=== PATIENT | male | born 1945 | race Asian ===

== ENCOUNTER 2016-06-10 05:52 | Emergency (ER) | payer MEDICAID ==
[~2016-06-10] VITALS: Ht 167.6 cm; Wt 59.0 kg
[2016-06-10 06:00] VITALS: BP 169/56
[2016-06-10] MEDS ORDERED: Albuterol ud Inhalation HHN ONE (06:00)
[2016-06-10] MEDS ORDERED: DuoNeb 0.5-3(2.5)mg/3ml neb ONE (06:00)
[2016-06-10] MEDS ORDERED: Solu-MEDROL 125mg Inj IVP ONE (06:00)
[2016-06-10] MEDS ORDERED: Ipratropium 0.02% Inh Soln 2.5ml UD HHN ONE (06:00)
[2016-06-10] MEDS ORDERED: AMLODIPINE BESY10 MG ORAL (06:51)
[2016-06-10] MEDS ORDERED: FUROSEMIDE40 MG ORAL (06:51)
[2016-06-10] MEDS ORDERED: NORMODYNE100 MG ORAL (06:51)
[2016-06-10] MEDS ORDERED: PRAVASTATIN SOD20 M1 ORAL (06:51)
[2016-06-10] MEDS ORDERED: VITAMIN D400 INTLU ORAL (06:51)
[2016-06-10] MEDS ORDERED: CATAPRES0.1 MG ORAL (06:51)
[2016-06-10] MEDS ORDERED: ALLOPURINOL100 M1 ORAL (06:51)
[2016-06-10] MEDS ORDERED: FEOSOL45 MG PO (06:51)
[2016-06-10] MEDS ORDERED: FOLIC ACID1 MG ORAL (06:51)
[2016-06-10] MEDS ORDERED: HYDRALAZINE HC100 MG ORAL (06:51)
--- NOTE | 2016-06-10 07:06 | Emergency Room Report ---
History of Present Illness General Chief Complaint: Dyspnea/Respdistress Source: Family Member, EMS Present Illness HPI Patient brought in by a [facility] for severe hypoxia and respiratory distress. Patient was released from [facility] yesterday at approximately 4 PM with diagnosis of CHF, pneumonia, COPD. Who is been treated with antibiotics as an inpatient and had been found to have low saturations. According to the daughter, who is a nurse. The patient had low sats in the upper 80s on discharge but then had episodes of desaturations into the 70s during eating and during any activity at home. [facility]blin since called, and patient was started on nebulized treatment initially when he came into the ER. IV access is obtained and the patient was placed on a monitoring tech, as well as oxygen was applied. Patient himself is not able to provide review of systems as he is limited at this time All information from the daughter. Allergies: Coded Allergies: ASPIRIN (Verified Allergy, Unknown, 06/10/16) Patient History Limited by: language barrier, medical condition - respiratory distress Past Medical History: see triage record Social History: Denies: alcohol use, drug use, smoking Immunizations: UTD Reviewed Nursing Documentation: PMH: Agreed Nursing Documentation-PMH Hx Hypertension: Yes Hx COPD: Yes - Pneumonia Review of Systems All Other Systems: limited - by patient's condition Physical Exam Vital Signs Date Time Temp Pulse Resp B/P Pulse Ox O2 Delivery O2 Flow Rate FiO2 06/10/16 05:50 98.2 96 18 164/68 94 Nasal Cannula 4.0 06/10/16 06:20 100 Sp02 EP Interpretation: reviewed, abnormal - requiring oxygen General Appearance: alert, moderate distress, cachetic, thin Head: normocephalic, atraumatic ENT: dry mucus membranes Neck: supple, thyroid normal Respiratory: respiratory distress, decreased breath sounds, accessory muscle use, rales, wheezing Cardiovascular #1: regular rate, rhythm, no edema, JVD Cardiovascular #2: 2+ carotid (R), 2+ carotid (L) Gastrointestinal: soft, no mass, no organomegaly Genitourinary: no CVA tenderness Neurologic: alert, responsive Skin: pallor Procedures Critical Care Time Critical Care Time 75 minutes occurred care time, excluding procedures, involving initial resuscitation efforts, multiple reviews of x-rays, labs, ECGs as well as discussion with admitting physicians and family and staff, Medical Decision Making Diagnostic Impression: Primary Impression: Respiratory failure with hypoxia Additional Impressions: Respiratory distress Dyspnea COPD exacerbation Pneumonia Congestive heart disease Acute CHF (congestive heart failure) Hypoxia ER Course Patient here with severe COPD, respiratory failure requiring high volume nebulizers and oxygen therapy. According to the daughter the patient is a full code and would be willing for intubation. Chest x-ray shows bilateral congestive heart failure with possible infiltrate suggestive of pneumonia. Patient receiving oxygen support at this time and should be noted to the STEVAN level of care with guarded condition for respiratory failure possible. Review of labs, consistent with infection, possible CHF,. Patient receives IV fluids as well as primarily diuretics and antibiotics, steroids in the ER. He continued respiratory support. I made first contact with [facility] for transfers patient has been recently treated there and all of her care to see their. Currently pending further transfer information. Spoke with Dr. Colon, who agrees for transfer to [place] to critical care bed. Patient transferred to [place] with otherwise stable condition. Laboratory Tests Test 06/10/16 06:30 06/10/16 07:06 06/10/16 07:12 White Blood Count 25.1 K/UL (4.8-10.8) *H Red Blood Count 2.71 M/UL (4.70-6.10) L Hemoglobin 9.2 G/DL (14.2-18.0) L Hematocrit 26.6 % (42.0-52.0) L Mean Corpuscular Volume 98 FL (80-99) Mean Corpuscular Hemoglobin 33.8 PG (27.0-31.0) H Mean Corpuscular Hemoglobin Concent 34.4 G/DL (32.0-36.0) Red Cell Distribution Width 13.7 % (11.6-14.8) Platelet Count 236 K/UL (150-450) Mean Platelet Volume 7.1 FL (6.5-10.1) Neutrophils (%) (Auto) % (45.0-75.0) Lymphocytes (%) (Auto) % (20.0-45.0) Monocytes (%) (Auto) % (1.0-10.0) Eosinophils (%) (Auto) % (0.0-3.0) Basophils (%) (Auto) % (0.0-2.0) Neutrophils % (Manual) Pending Lymphocytes % (Manual) Pending Platelet Estimate Pending Platelet Morphology Pending Prothrombin Time 9.9 SEC (9.30-11.50) Prothromb Time International Ratio 1.0 (0.9-1.1) Activated Partial Thromboplast Time 27 SEC (23-33) Sodium Level 144 mEQ/L (135-145) Potassium Level 5.1 mEQ/L (3.4-4.9) H Chloride Level 107 mEQ/L (98-107) Carbon Dioxide Level 15 mEQ/L (20-30) L Anion Gap 22 (5-15) H Blood Urea Nitrogen 93 mg/dL (7-23) H Creatinine 3.9 mg/dL (0.7-1.2) H Estimat Glomerular Filtration Rate mL/min (>60) Glucose Level 145 mg/dL (74-106) H Lactic Acid Level 2.10 mmol/L (0.66-2.22) Calcium Level 9.1 mg/dL (8.6-10.2) Total Bilirubin 0.4 mg/dL (0.0-1.2) Aspartate Amino Transf (AST/SGOT) 31 U/L (5-40) Alanine Aminotransferase (ALT/SGPT) 19 U/L (3-41) Alkaline Phosphatase 97 U/L (40-129) Total Creatine Kinase 190 U/L (38-174) H Creatine Kinase MB 4.4 ng/mL (< 6.7) Creatine Kinase MB Relative Index 2.3 Troponin I < 0.30 ng/mL (<=0.30) Pro-B-Type Natriuretic Peptide 8249 pg/mL (0-125) H Total Protein 7.5 g/dL (6.6-8.7) Albumin 3.8 g/dL (3.5-5.2) Globulin 3.7 g/dL Albumin/Globulin Ratio 1.0 (1.0-2.7) Venous Blood pH Pending Venous Blood Partial Pressure CO2 Pending Venous Blood Partial Pressure O2 Pending Venous Blood HCO3 Pending Venous Blood Total Carbon Dioxide Pending Venous Bld O2 Saturation (Measured) 33.7 Venous Blood Oxygen Saturation Pending Venous Blood Base Excess Pending Methemoglobin 0.7 Sodium (Blood Gas) Pending Urine Color Pale yellow Urine Appearance Slightly cloudy Urine pH 5 (4.5-8.0) Urine Specific [place] 1.015 (1.005-1.035) Urine Protein 4+ (NEGATIVE) H Urine Glucose (UA) 1+ (NEGATIVE) H Urine Ketones Negative (NEGATIVE) Urine Occult Blood 4+ (NEGATIVE) H Urine Nitrite Negative (NEGATIVE) Urine Bilirubin Negative (NEGATIVE) Urine Urobilinogen Normal MG/DL (0.0-1.0) Urine Leukocyte Esterase Negative (NEGATIVE) Urine RBC 10-15 /HPF (0 - 0) H Urine WBC 0-2 /HPF (0 - 0) Urine Squamous Epithelial Cells Occasional /LPF Urine Amorphous Sediment Few /LPF (NONE) H Urine Bacteria Few /HPF (NONE) EKG Diagnostic Results EKG Time: 05:58 EP Interpretation: rate 91 Rate: normal Rhythm: NSR ST Segments: other - prolonged MT interval, 292 ms, highly peak T waves ASA given to the pt in ED: No Rhythm Strip Diag. Results Rhythm Strip Time: 07:03 EP Interpretation: yes Rate: 66 Rhythm: NSR, no PVC's, no ectopy Chest X-Ray Diagnostic Results Time: 07:03 EP Interpretation: No Findings: other - Bilateral, congestive heart failure with possible infiltrates middle and lower lobes bilaterally. Number of Views: 1 Reevaluation Time: 07:06 Last Vital Signs Date Time Temp Pulse Resp B/P Pulse Ox O2 Delivery O2 Flow Rate FiO2 06/10/16 06:35 89 28 95 Non-Rebreather 15.0 100 06/10/16 05:50 98.2 164/68 Status: improved Disposition: XFER SHT-TRM HOSP Admit Decision Time: 07:06 Condition: Serious Referrals: [facility]ERR[facility] (PCP) Kanu Fleming MD Jun 10, 2016 07:06
[2016-06-10 07:12] LABS: MEAN CORPUSCULAR HEMOGLOBIN 33.8 PG (27.0-31.0); MEAN CORPUSCULAR HGB CONC 34.4 G/DL (32.0-36.0); MEAN CORPUSCULAR VOLUME 98 FL (80-99); MEAN PLATELET VOLUME 7.1 FL (6.5-10.1); PLATELET COUNT 236 K/UL (150-450); RED BLOOD COUNT 2.71 M/UL (4.70-6.10); RED CELL DISTRIBUTION WIDTH 13.7 % (11.6-14.8)
[2016-06-10 07:13] LABS: PROTHROMBIN TIME 9.9 SEC (9.30-11.50); WHITE BLOOD COUNT 25.1 K/UL (4.8-10.8)
[2016-06-10 07:15] VITALS: BP 177/68
[2016-06-10] MEDS ORDERED: cefTRIAXone 1 GM in NS 55 ML IVPB ONE (07:15)
[2016-06-10] MEDS ORDERED: Azithromycin 500 MG in D5W 275 ML IVPB ONE (07:15)
[2016-06-10 07:18] LABS: ALANINE AMINOTRANSFERASE 19 U/L (3-41); ANION GAP 22 (5-15); ASPARTATE AMINO TRANSFERASE 31 U/L (5-40); CALCIUM 9.1 mg/dL (8.6-10.2); CARBON DIOXIDE 15 mEQ/L (20-30); CHLORIDE 107 mEQ/L (98-107); CREATININE 3.9 mg/dL (0.7-1.2); HEMOLYSIS 0; POTASSIUM 5.1 mEQ/L (3.4-4.9); SODIUM 144 mEQ/L (135-145); TOTAL PROTEIN 7.5 g/dL (6.6-8.7)
[2016-06-10 07:21] LABS: REFLEX LACTIC ACID YES OR NO YES
[2016-06-10 07:27] LABS: TROPONIN I < 0.30 ng/mL (<=0.30)
[2016-06-10 07:29] LABS: APPEARANCE,URINE SLIGHTLY CLOUDY; KETONES,URINE NEGATIVE (NEGATIVE); LEUKOCYTE ESTERASE ,URINE NEGATIVE (NEGATIVE); NITRITE,URINE NEGATIVE (NEGATIVE); PH,URINE 5 (4.5-8.0); PROTEIN,URINE 4+ (NEGATIVE); UROBILINOGEN,URINE NORMAL MG/DL (0.0-1.0)
[2016-06-10] MEDS ORDERED: Azithromycin Inj IV ONE (07:40)
[2016-06-10 07:43] LABS: CKMB 4.4 ng/mL (< 6.7)
[2016-06-10 07:46] LABS: AMORPHOUS SEDIMENT,UR FEW /LPF; BACTERIA,URINE FEW /HPF; SQUAMOUS EPITHELIAL CELL,UR OCCASIONAL /LPF (NONE/OCC); WBC,URINE 0-2 /HPF (0 - 0)
[2016-06-10 07:48] LABS: O2 CONTENT VENOUS 33.7
--- NOTE | 2016-06-10 08:32 | Diagnostic Imaging Report ---
Indications: Shortness of breath Technique: Portable AP chest Findings: Comparison: None Interstitial infiltrates are present diffusely throughout both lungs. Superimposed focal areas of alveolar consolidation are present in the midlung bilaterally, left greater than right. Heart size within normal limits. Pulmonary vasculature obscured. No pleural abnormality. Thoracic aorta mildly calcified and elongated. Osteophytes lower thoracic spine. Chronic appearing contour deformity right clavicle. IMPRESSION: Bilateral interstitial infiltrates may represent pulmonary edema, cardiogenic versus noncardiogenic, diffuse interstitial pneumonitis, or chronic interstitial disease Focal alveolar opacities bilateral midlung regions may represent same process is interstitial disease. Superimposed focal pneumonia must also be considered Aortosclerosis and probable chronic hypertensive change Old fracture right clavicle
[2016-06-10 08:39] VITALS: BP 153/59
[2016-06-10 08:51] LABS: BAND NEUTROPHILS % (MANUAL) 0 % (0-8); BASOPHILS % (MANUAL) 0 % (0-2); EOSINOPHILS % (MANUAL) 0 % (0-3); LYMPHOCYTES % (MANUAL) 2 % (20-45); NEUTROPHILS % (MANUAL) 90 % (45-75); PLATELET ESTIMATE ADEQUATE; PLATELET MORPHOLOGY NORMAL; TOTAL CELLS COUNTED 100
[2016-06-10 08:52] LABS: HYPOCHROMASIA 1+
[2016-06-10 09:06] VITALS: BP 153/59
--- NOTE | 2016-06-15 12:40 | Cardiology Report ---
APPROVED REPORT EKG Measurement Heart [id number] Sinus rhythm with 1st degree AV block Otherwise normal ECG
== END 2016-06-10 09:20 | disposition short-term general hospital (02) ==
LOC: EDBD 05:52 → EMR 05:59
DX: J96.91 Respiratory failure, unspecified with hypoxia (principal); J44.1 Chronic obstructive pulmonary disease with (acute) exacerbation; J18.9 Pneumonia, unspecified organism; I50.9 Heart failure, unspecified; I10 Essential (primary) hypertension
CPT/HCPCS: 36415; 71010; 80053; 81003; 82550; 82553; 82962; 83605; 83880; 84484; 85007; 85025; 85610; 85730; 87040; 93005; 94640; 94664; 96374; 96375; 99291; J0456; J0696; J1940; J2930; J7620

== ENCOUNTER 2018-11-18 05:56 | Day surgery (SDC) | payer MEDICARE, MEDICAID ==
--- NOTE | 2018-10-20 12:57 | Opthalmology H&P ---
Ophthalmology H&P H&P Chief Complaint: decreased vision in left eye HPI Vision Affects Ability to: read, manage personal affairs HPI Narrative Blurry vision Exam Visual Acuity: OD 20/80 OS 20/80 Tension: OD 13 OS 12 Eye Exam: normal OU: external exam, palpebral fissure-width, marginal reflex distance, levator function, corneas, anterior chambers, lens - NS Cataract OD/ PSC-NS Cataract OS, fundus exam; findings: lens - NS Cataract OD/ PSC-NS Cataract OS Assessment/Plan Treatment Plan: cataract extraction w/ lens implant Goals of Treatment: improvement of vision, enhance quality of life Attestation Attestation The risks and benefits of the surgery as well as alternative procedures were explained to the patient in detail. Jurgen Mena MD Oct 20, 2018 12:57
--- NOTE | 2018-10-20 13:00 | Pre-Procedure Note/Attestation ---
Pre-Procedure Note/Attestation Complete Prior to Procedure Planned Procedure: left Procedure Narrative: Cataract extraction with intraocular lens implant left eye Indications for Procedure Pre-Operative Diagnosis: Posterior subcapsular/ nuclear sclerotic cataract left eye Attestation I attest that I discussed the nature of the procedure; its benefits; risks and complications; and alternatives (and the risks and benefits of such alternatives ), prior to the procedure, with the patient (or the patient's legal admitting representative). I attest that, if there was a reasonable possibility of needing a blood transfusion, the patient (or the patient's legal admitting representative) was given the [facility] standardized written summary, pursuant to the Amaury Edel Blood Safety Act ([place] Health and Safety Code # 1645, as amended). I attest that I re-evaluated the patient just prior to the surgery and that there has been no change in the patient's H&P, except as documented below: Jurgen Mena MD Oct 20, 2018 13:00
--- NOTE | 2018-11-17 12:03 | Pre-Procedure Note/Attestation ---
Pre-Procedure Note/Attestation Complete Prior to Procedure Planned Procedure: left Procedure Narrative: Cataract extraction with intraocular lens implant left eye Indications for Procedure Pre-Operative Diagnosis: Posterior subcapsular/ nuclear sclerotic cataract left eye Attestation I attest that I discussed the nature of the procedure; its benefits; risks and complications; and alternatives (and the risks and benefits of such alternatives ), prior to the procedure, with the patient (or the patient's legal call center support representative). I attest that, if there was a reasonable possibility of needing a blood transfusion, the patient (or the patient's legal call center support representative) was given the [facility] standardized written summary, pursuant to the Amaury Edel Blood Safety Act ([place] Health and Safety Code # 1645, as amended). I attest that I re-evaluated the patient just prior to the surgery and that there has been no change in the patient's H&P, except as documented below: Jurgen Mena MD Nov 17, 2018 12:03
[2018-11-18] VITALS (9 sets, daily range): BP systolic 139–178; BP diastolic 58–80
[~2018-11-18] VITALS: Ht 170.2 cm; Wt 59.9 kg
[~2018-11-18 05:56] MED LIST: ADALAT20 MG ORAL; ALLOPURINOL100 M1 ORAL; AMLODIPINE BESY10 MG ORAL; Akten 3.5% 1ml Btl LEFT EYE ONE; CATAPRES0.1 MG ORAL; Cyclopentolate 1% Opth Sol 2ml LEFT EYE SCH; DIOVAN80 MG ORAL; Diclofenac Sod 0.1% Op Soln LEFT EYE SCH; FEOSOL45 MG PO; FOLIC ACID1 MG ORAL; FUROSEMIDE40 MG ORAL; HYDRALAZINE HC100 MG ORAL; NEPHROVITE1 TAB ORAL; NORMODYNE100 MG ORAL; PRAVASTATIN SOD20 M1 ORAL; Phenylephrine 10% Opth Soln 5ml LEFT EYE SCH; Proparacaine 0.5% Opth Soln 15ml LEFT EYE ONE; RENVELA0.8 GM ORAL; Tetracaine 0.5% Opth 4ml Soln LEFT EYE ONE; Tobramycin Op Soln 0.3% 5ml LEFT EYE SCH; Tropicamide 1% Opth 15ml Soln LEFT EYE SCH; VITAMIN D400 INTLU ORAL
[2018-11-18] MEDS ORDERED: Pilocarpine 1% Opth 15ml Soln ONE (07:00)
[2018-11-18] MEDS ORDERED: Polysporin Opth Oint 3.5gm ONE (07:00)
[2018-11-18] MEDS ORDERED: Pred Forte 1% Opth Susp 1ml ONE (07:00)
[2018-11-18] MEDS ORDERED: Akten 3.5% 1ml Btl LEFT EYE ONE (07:00)
[2018-11-18] MEDS ORDERED: Tetracaine 0.5% Opth 4ml Soln LEFT EYE ONE (07:00)
[2018-11-18] MEDS ORDERED: Diclofenac Sod 0.1% Op Soln LEFT EYE SCH (07:00)
[2018-11-18] MEDS ORDERED: Proparacaine 0.5% Opth Soln 15ml LEFT EYE ONE (07:00)
[2018-11-18] MEDS: Cyclopentolate 1% Opth Sol 2ml LEFT EYE SCH ×3 (07:23→08:00)
[2018-11-18] MEDS: Tropicamide 1% Opth 15ml Soln LEFT EYE SCH ×3 (07:23→08:00)
[2018-11-18] MEDS: Tobramycin Op Soln 0.3% 5ml LEFT EYE SCH ×3 (07:25→08:00)
[2018-11-18] MEDS: Phenylephrine 10% Opth Soln 5ml LEFT EYE SCH ×3 (07:25→08:00)
[2018-11-18] MEDS ORDERED: Midazolam 2mg/2ml Inj IVP PRN ×2 (07:45→10:15)
[2018-11-18] MEDS ORDERED: DiphenhydrAMINE 50mg/ml Inj IVP PRN ×2 (07:45→10:15)
[2018-11-18] MEDS ORDERED: fentaNYL 100 mcg/2 mL IV PRN ×2 (07:45→10:15)
[2018-11-18] MEDS ORDERED: Atropine Sulfate 0.4mg/ml inj IVP PRN ×2 (07:45→10:15)
--- NOTE | 2018-11-18 07:50 | Anethesia Preoperative Eval ---
Jennifer Gunn MD 11/18/18 0750: Anesthesia Pre-op PMH/ROS General Date of Evaluation: Nov 18, 2018 Time of Evaluation: 07:47 Anesthesiologist: perico ASA Score: ASA 3 Mallampati Score Class I : Soft palate, uvula, fauces, pillars visible Class II: Soft palate, uvula, fauces visible Class III: Soft palate, base of uvula visible Class IV: Only hard plate visible Surgeon: jameson Diagnosis: posterior subcapsular cataract left eye Surgical Procedure: cataract extraction w/iol implant left eye Family History: no anesthesia problems Allergies: Uncoded Allergies: paper tape (Allergy, Severe, 11/18/18) SKIN RASH Past Medical History Cardiovascular: Reports: HTN Pulmonary: Reports: COPD, other - pneumonia Gastrointestinal/Genitourinary: Reports: ESRD HEENT: Reports: [place]IL[place] (L), [place] (R) Anesthesia Pre-op A/P Risk Assessment & Plan Assessment: asa4 Plan: Ayden Herrera MD 11/18/18 1016: Anesthesia Pre-op PMH/ROS General Mallampati Classification: Class III Allergies: Uncoded Allergies: paper tape (Allergy, Severe, 11/18/18) SKIN RASH Jennifer Gunn MD Nov 18, 2018 07:50 Ayden Hyde MD Nov 18, 2018 10:16
[2018-11-18] MEDS ORDERED: Lidocaine 1% MPF 10mg/ml 5ml ONE (10:00)
[2018-11-18] MEDS ORDERED: Propofol 200mg/20ml IV ONE (10:00)
[2018-11-18] MEDS ORDERED: LR 1000ml ONE (10:00)
[2018-11-18] MEDS ORDERED: Sterile Water Irrig 1000ml IRRIG ONE (10:00)
[2018-11-18] MEDS ORDERED: NS Irrig 2000ml IRRIG ONE (10:00)
[2018-11-18] MEDS ORDERED: Midazolam 2mg/2ml Inj ONE (10:11)
[2018-11-18] MEDS ORDERED: Sodium Chloride 10ml vial INJ ONE (10:12)
[2018-11-18] MEDS ORDERED: Meperidine 50mg/ml Inj(FOR RIGORS ONLY) IVP PRN (10:15)
[2018-11-18] MEDS ORDERED: Ketorolac 30mg Inj IV PRN ×2 (10:15)
[2018-11-18] MEDS ORDERED: HYDROcodone/Acetamin 5/325 tab ORAL PRN (10:15)
[2018-11-18] MEDS ORDERED: oxyCODONE HCL/Acetaminophen 5/325mg ORAL PRN (10:15)
[2018-11-18] MEDS ORDERED: Metoclopramide 10mg/2ml Inj IVP PRN (10:15)
[2018-11-18] MEDS ORDERED: LR 1000ml 1,000 ML IVLG SCH (10:15)
[2018-11-18] MEDS ORDERED: LORazepam Inj 2mg/ml 1ml IV PRN (10:15)
[2018-11-18] MEDS ORDERED: HYDROcodone/Acetamin 7.5/325 tab ORAL PRN (10:15)
[2018-11-18] MEDS ORDERED: Labetalol 5mg/ml 20ml vial IV PRN (10:15)
[2018-11-18] MEDS ORDERED: Hydromorphone 0.5mg/0.5ml inj IVP PRN (10:15)
--- NOTE | 2018-11-18 10:40 | Immediate Post-Op Evaluation ---
Immediate Post-Op Evalulation Immediate Post-Op Evalulation Procedure: Cat Ext IOL OS Date of Evaluation: Nov 18, 2018 Time of Evaluation: 11:08 IV Fluids: 300 NS Blood Products: 0 Estimated Blood Loss: 2 Urinary Output: 0 Blood Pressure Systolic: 169 Blood Pressure Diastolic: 70 Pulse Rate: 59 Respiratory Rate: 16 O2 Sat by Pulse Oximetry: 99 Temperature (Fahrenheit): 97.6 Pain Score (1-10): 1 Nausea: No Vomiting: No Complications 0 Patient Status: awake, reacts, patent, none Hydration Status: adequate Ayden Hyde MD Nov 18, 2018 10:40
--- NOTE | 2018-11-18 10:41 | 48 Hour Post Anesthesia Eval ---
Post Anesthesia Evaluation Procedure: Cat Ext IOL OS Date of Evaluation: Nov 18, 2018 Time of Evaluation: 13:12 Blood Pressure Systolic: 171 0: 72 Pulse Rate: 61 Respiratory Rate: 18 Temperature (Fahrenheit): 97.8 O2 Sat by Pulse Oximetry: 99 Airway: patent Nausea: No Vomiting: No Pain Intensity: 1 Hydration Status: adequate Cardiopulmonary Status: Stable Mental Status/LOC: patient returned to baseline Follow-up Care/Observations: 0 Post-Anesthesia Complications: 0 Follow-up care needed: ready to discharge Ayden Hyde MD Nov 18, 2018 10:41
[2018-11-18] MEDS ORDERED: EPINEPHrine 1mg/1ml Amp ONE (12:57)
[2018-11-18] MEDS ORDERED: BSS 500ml btl ONE (12:57)
[2018-11-18] MEDS ORDERED: Dexamethasone 4mg/ml vial ONE (12:57)
[2018-11-18] MEDS ORDERED: BSS 15ml BTL ONE (12:57)
[2018-11-18] MEDS ORDERED: Sodium Hyaluronate 14 mg/ml 0.85ml ONE (12:58)
[2018-11-18] MEDS ORDERED: Povidone-Iodine 5% opth solution ONE (12:58)
--- NOTE | 2018-11-21 12:05 | Brief Operative Note ---
Immediate Post Operative Note Operative Note Chief Complaint: Blurry Vision left eye Pre-op Diagnosis: Posterior subcapsular/ nuclear sclerotic cataract left eye Procedure: Cataract extraction with intraocular lens implant left eye Post-op Diagnosis: Pseudophakia left eye Post-op Diagnosis: same as pre-op Findings: consistent w/pre-op dx studies Surgeon: Jurgen Mena MD Anesthesiologist: Ayden Hyde MD Anesthesia: MAC Specimen: none Complications: none Condition: stable Fluids: LR Estimated Blood Loss: none Drains: none Implant(s) used?: Yes - IOL-OS Jurgen Mena MD Nov 21, 2018 12:05
--- NOTE | 2018-11-21 12:09 | Operative Note - PDOC ---
Operative Note Operative Note Date of Operation/Procedure: Nov 18, 2018 Chief Complaint: Blurry Vision left eye Pre-op Diagnosis: Posterior subcapsular/ nuclear sclerotic cataract left eye Procedure: Cataract extraction with intraocular lens implant left eye Post-op Diagnosis: Pseudophakia left eye Post-op Diagnosis: same as pre-op Operative Findings: consistent w/pre-op dx studies Surgeon: Jurgen Mena MD Anesthesiologist: Ayden Hyde MD Anesthesia: MAC Specimen: none Complications: none Condition: stable Fluids: LR Estimated Blood Loss: none Drains: none Implant(s) used?: Yes - IOL OS Indications for Procedure Posterior subcapsular/nuclear sclerotic cataract left eye Description of Procedure This patient has been complaining visually significant cataract in the left eye with the best corrected visual acuity of 20/80 under moderate glare conditions worse. The patient complains of difficulties with glare in performing activities of daily living and wants to manage personal affairs with comfort and accuracy and see well enough to move with safety at home and outdoors. The risks, benefits and alternatives of the procedure were discussed with the patient in the office prior to scheduling surgery. All questions from the patient were answered after the surgical procedure was explained in detail. The risks of the procedure as explained to the patient include, but are not limited to, pain, infection, bleeding, loss of vision, retinal detachment, need for further surgery, loss of lens nucleus, double vision, etc. Alternative procedures were discussed which include, to do nothing or seek a second opinion. Informed consent for this procedure was obtained from the patient. The patient was referred to a primary care physician for a cardiopulmonary clearance prior to surgery, after proper evaluation was done patient was properly scheduled for outpatient surgery. The patient was brought to the operating room where the anesthesiologist established I.V. lines and cardiac monitoring leads. Mild intravenous sedation was administered. The patient was then prepared with a 5% solution of povidone -iodine to the conjunctival fornix and lashes, and a 5% solution of povidone- iodine to the lids and periorbital skin. The patient was then draped in the usual sterile fashion. A lid speculum was then placed in the operative eye. A keratome blade was then used to create a biplanar incision into the anterior chamber. Viscoelastics was then instilled into the anterior chamber. A capsulorrhexis was then fashioned with an utrata forceps. The lens nucleus was hydrodissected and hydrodelineated with a G 27 Cannula. Paracentesis incision was made at 3 o'clock with sharp blade. The phacoemulsification unit, after being properly adjusted and tested, was then used to emulsify the nucleus followed by aspiration and irrigation of residual cortical material. Healon was then instilled into the anterior chamber. The corneal wound was then enlarged to the size of the optic with the talat keratome blade. The intraocular lens was then inspected for right power and size and thought to be satisfactory. Then the lens was gently placed in the capsular bag. Positioning within the capsular bag was confirmed by direct visualization. Optic centration was accomplished with a Sinskey hook. Viscoelastics was removed from the anterior chamber using the irrigation and aspiration unit. The corneal wound was then tested for leaks and none were found. The lid speculum were then removed. Sponge and needle counts were correct. An eye patch and shield were placed over the operative eye. The patient was taken to the recovery room in stable condition. There were no complications. The patient tolerated the procedure well. The patient was then transferred to the ambulatory surgery unit in stable and satisfactory condition , was given detailed written instructions and asked to follow up in the office the next day. Jurgen Mena MD Nov 21, 2018 12:09
== END 2018-11-18 12:15 | disposition home or self-care (01) ==
LOC: SUR 05:56
DX: H25.042 Posterior subcapsular polar age-related cataract, left eye (principal); H25.12 Age-related nuclear cataract, left eye; J44.9 Chronic obstructive pulmonary disease, unspecified; I12.9 Hypertensive chronic kidney disease with stage 1 through stage 4 chronic kidney disease, or unspecified chronic kidney disease; N18.9 Chronic kidney disease, unspecified
CPT/HCPCS: 36415; 66984; 84132; J0171; J1100; J2250; J2704; J3370; V2632; 94003; 94150

== ENCOUNTER 2019-06-14 23:41 | Inpatient (IN) | payer MEDICARE, MEDICAID ==
[~2019-06-14] VITALS: Ht 167.6 cm; Wt 48.1 kg
[~2019-06-14 23:41] MED LIST changes: -Akten 3.5% 1ml Btl LEFT EYE ONE; -Cyclopentolate 1% Opth Sol 2ml LEFT EYE SCH; -Diclofenac Sod 0.1% Op Soln LEFT EYE SCH; -Phenylephrine 10% Opth Soln 5ml LEFT EYE SCH; -Proparacaine 0.5% Opth Soln 15ml LEFT EYE ONE; -Tetracaine 0.5% Opth 4ml Soln LEFT EYE ONE; -Tobramycin Op Soln 0.3% 5ml LEFT EYE SCH; -Tropicamide 1% Opth 15ml Soln LEFT EYE SCH
[2019-06-15] MEDS ORDERED: Ipratropium 0.02% Inh Soln 2.5ml UD HHN ONE
[2019-06-15] MEDS ORDERED: Solu-MEDROL 125mg Inj IVP ONE
--- NOTE | 2019-06-15 00:14 | NUR ---
ED Nurse Note: pt presents to ED via EMS arrival RA 68 for SOB since earlier this morning. EMS report that pt is on 4L NC at home and is satting at 99% with 4L NC en route to ED. pt goes to dialysis T, Th, Sat, and his port is on the L side. pt denies any pain at this time, reports a cough Addendum: 06/15/19 at 0042 by [facility] also report that they had 2 EKG's en route that showed the pt is in A-fib. pt denies any h/o A-fib
[2019-06-15 00:16] VITALS: BP 147/69
--- NOTE | 2019-06-15 00:16 | NUR ---
ED Nurse Note: pt reports that he was diagnosed with stage 2 lung CA 4 months ago and since april has been in and out of the hospital for the same symptoms. pt states that he was diagnosed with pneumonia the last time he was in the hospital.
--- NOTE | 2019-06-15 00:30 | NUR ---
ED Nurse Note: RT put pt on 3L NC by respiratory therapist, SpO2 is 96% will conintue to monitor
[2019-06-15 00:40] LABS: BASOPHILS % (AUTO) 1.2 % (0.0-2.0); EOSINOPHILS % (AUTO) 1.2 % (0.0-3.0); HEMATOCRIT 28.1 % (42.0-52.0); LYMPHOCYTES % (AUTO) 17.2 % (20.0-45.0); MEAN CORPUSCULAR VOLUME 97 FL (80-99); NEUTROPHILS % (AUTO) 72.3 % (45.0-75.0); PLATELET COUNT 241 K/UL (150-450); RED BLOOD COUNT 2.91 M/UL (4.70-6.10); RED CELL DISTRIBUTION WIDTH 20.3 % (11.6-14.8)
[2019-06-15 00:51] LABS: ANION GAP 10 mmol/L (5-15); BLOOD UREA NITROGEN 35 mg/dL (7-18); CALCIUM 8.6 MG/DL (8.5-10.1); CARBON DIOXIDE 32 MMOL/L (21-32); CHLORIDE 100 MMOL/L (98-107); CREATININE 6.4 MG/DL (0.55-1.30); POTASSIUM 3.4 MMOL/L (3.5-5.1); SODIUM 141 MMOL/L (136-145)
[2019-06-15] MEDS ORDERED: Piperacillin/Tazobactam 3.375 GM in NS 110 ML IVPB ONE (01:00)
[2019-06-15 01:05] LABS: ALANINE AMINOTRANSFERASE 18 U/L (12-78); ALBUMIN 2.5 G/DL (3.4-5.0); ALBUMIN/GLOBULIN RATIO 0.4 (1.0-2.7); ALKALINE PHOSPHATASE 78 U/L (46-116); ASPARTATE AMINO TRANSFERASE 45 U/L (15-37); BILIRUBIN,TOTAL 0.5 MG/DL (0.2-1.0); CKMB 0.9 NG/ML (0.0-3.6); CREATINE KINASE 43 U/L (26-308)
--- NOTE | 2019-06-15 02:05 | Emergency Room Report ---
History of Present Illness General Chief Complaint: Upper Respiratory Illness Source: Patient Present Illness HPI This a 74-year-old [place] Citizen male with a history of stage II lung cancer diagnosed a 12 years ago. He had chemotherapy and radiation and stopped over a year now. Also history of CHF. He presents with chief complaint shortness of breath. Onset all day today. Worsened tonight. Worse with lying flat. Worse with exertion. He has increased his oxygenation requirement from 3 L to 5 L. Coughing is productive of phlegm. He denies any fever chills. He denies any other complaint. Similar symptom in the past. He was admitted to [facility] for about a week at the end of April. Allergies: Coded Allergies: ASPIRIN (Verified Allergy, Unknown, 06/14/19) Uncoded Allergies: paper tape (Allergy, Severe, 11/18/18) SKIN RASH Patient History Past Medical History: see triage record, old chart reviewed, HTN, CAD, CHF, COPD, other - Lung CA Past Surgical History: other Pertinent Family History: none Social History: Denies: smoking - History of Immunizations: other Reviewed Nursing Documentation: PMH: Agreed; PSxH: Agreed Nursing Documentation-PMH Hx Cardiac Problems: Yes - AFIB EKG Hx Hypertension: Yes Hx COPD: Yes Hx Diabetes: Yes Hx Cancer: No Hx Gastrointestinal Problems: Yes - S/P GASTRIC TUBE FEEDING-2017 X 6 MOS DUE TO PNEUMONIA Hx Dialysis: Yes - T/TH/SAT Hx Neurological Problems: No Review of Systems Eye: Denies: eye pain, blurred vision ENT: Denies: ear pain, nose congestion, throat swelling Respiratory: Reports: shortness of breath; Denies: cough Cardiovascular: Denies: chest pain, palpitations Gastrointestinal: Denies: abdominal pain, diarrhea, nausea, vomiting Musculoskeletal: Denies: back pain, joint pain Skin: Denies: rash Neurological: Denies: headache, numbness Endocrine: Denies: increased thirst, increased urine Hematologic/Lymphatic: Denies: easy bruising All Other Systems: negative except mentioned in HPI Physical Exam Vital Signs Date Time Temp Pulse Resp B/P (MAP) Pulse Ox O2 Delivery O2 Flow Rate FiO2 06/14/19 23:46 98.8 82 16 147/69 (95) 98 Nasal Cannula 4.0 06/15/19 00:06 28 Vitals unremarkable Sp02 EP Interpretation: reviewed, normal General Appearance: alert, mild distress, Chronically Ill Head: normocephalic, atraumatic Eyes: bilateral eye PERRL, bilateral eye EOMI ENT: hearing grossly normal, normal pharynx Neck: full range of motion, supple, no meningismus Respiratory: chest non-tender, respiratory distress, decreased breath sounds, accessory muscle use, rales, rhonchi, wheezing Cardiovascular #1: regular rate, rhythm, no murmur Gastrointestinal: normal bowel sounds, non tender, no mass, no organomegaly, no bruit, non-distended Musculoskeletal: back normal, normal range of motion Psychiatric: mood/affect normal Medical Decision Making Diagnostic Impression: Primary Impression: Acute exacerbation of CHF (congestive heart failure) Qualified Codes: I50.9 - Heart failure, unspecified Additional Impressions: COPD with exacerbation Respiratory failure with hypoxia Qualified Codes: J96.21 - Acute and chronic respiratory failure with hypoxia Acute renal failure Qualified Codes: N17.9 - Acute kidney failure, unspecified Anemia Qualified Codes: D64.9 - Anemia, unspecified ER Course Patient with acute on chronic respiratory distress and respiratory failure. He has combination of CHF and COPD. He may have underlying infiltrate. Antibiotics given here. Patient felt better after breathing treatment. Because of his multiple risk factors, will admit for further work-up. I contacted Dr. Squires for admission. EKG Diagnostic Results Rate: normal Rhythm: NSR ST Segments: other - NSST changes ASA given to the pt in ED: Yes Rhythm Strip Diag. Results EP Interpretation: yes Rate: 82 Rhythm: NSR, no PVC's, no ectopy Chest X-Ray Diagnostic Results Chest X-Ray Diagnostic Results : Chest X-Ray Ordered: Yes # of Views/Limited/Complete: 1 View Indication: Shortness of Breath EP Interpretation: Yes Interpretation: no pneumothorax, other - interstitial lungs dz, vasc congestion, RUL mass. Impression: Other - ILD, chf Electronically Signed by: Mil Cain MD Last Vital Signs Date Time Temp Pulse Resp B/P (MAP) Pulse Ox O2 Delivery O2 Flow Rate FiO2 06/15/19 00:40 85 25 97 Nasal Cannula 3.0 06/15/19 00:25 28 06/15/19 00:16 98.8 147/69 Status: improved Disposition: ADMITTED INPATIENT Condition: Serious Referrals: NON PHYSICIAN (PCP) Mil Cain MD Jun 15, 2019 02:05
[2019-06-15] MEDS ORDERED: Albuterol ud Inhalation HHN ONE ×2 (02:15)
--- NOTE | 2019-06-15 02:17 | NUR ---
ED Nurse Note: report given to THOR Tavares
[2019-06-15] MEDS ORDERED: Albuterol ud Inhalation HHN SCH (03:00)
--- NOTE | 2019-06-15 03:11 | NUR ---
NURSE NOTES: Patient arrived to the unit @0225 via gurney accompanied by the RN and the technical support specialist. Received report from THOR Dickerson from ED. Patient is alert, awake, and responsive. Remains on a 3L NC, with saturation of 96%. Patient currently denies any pain or discomfort. IV access is on the LFA, 22G, patent, intact, and saline locked. Patient's dialysis access is on the R arm, presence of thrill and bruit noted, sign displayed above head of patient's dialysis access. Placed patient on quality assurance monitor chassis, currently displaying A-Fib. Per patient, he has no history of A-Fib. Reviewed the home medication with the patient. Belongings list reviewed and signed with the transferring RN. Patient's is at bed-side. Oriented patient to the room, patient is able to make needs known. Bed is in lowest position, breaks engaged, side-rails x3, bed-alarm on, and call light is within reach at all times. All other needs attended to, patient is currently stable. Contacted Dr. Squires and left a message for admitting orders. No response yet, will continue to monitor the patient.
[2019-06-15] MEDS ORDERED: Albuterol ud Inhalation HHN PRN (06:45)
--- NOTE | 2019-06-15 07:00 | NUR ---
NURSE NOTES: Received report from THOR Bojorquez. Pt A&O x4, denies any pain. Pt asked for breathing tx, RT made aware. IV site on left FA 22g patent and asymptomatic, R AV shunt for dialysis. on bedside. bed on lowest position, call light within reach. Will continue plan of care.
--- NOTE | 2019-06-15 07:31 | NUR ---
NURSE NOTES: Report given to THOR Gray. Patient remains in stable condition. Plan of care endorsed.
[2019-06-15] MEDS: Albuterol ud Inhalation HHN SCH ×5 (07:33→23:52)
[2019-06-15 08:00] VITALS: BP 147/72
[2019-06-15 08:35] LABS: HEMATOCRIT 26.3 % (42.0-52.0); HEMOGLOBIN 8.4 G/DL (14.2-18.0); MEAN CORPUSCULAR VOLUME 96 FL (80-99); PLATELET COUNT 240 K/UL (150-450); RED BLOOD COUNT 2.74 M/UL (4.70-6.10); RED CELL DISTRIBUTION WIDTH 20.1 % (11.6-14.8); WHITE BLOOD COUNT 12.3 K/UL (4.8-10.8)
--- NOTE | 2019-06-15 09:02 | NUR ---
NURSE NOTES: Received a call from Dr Diaz, ordered HD for today. Called [facility] and talked to Gurmeet. Awaiting for a callback for confirmation.
[2019-06-15 09:48] LABS: ALANINE AMINOTRANSFERASE 13 U/L (12-78); ALBUMIN 2.3 G/DL (3.4-5.0); ALBUMIN/GLOBULIN RATIO 0.4 (1.0-2.7); ALKALINE PHOSPHATASE 71 U/L (46-116); ANION GAP 12 mmol/L (5-15); ASPARTATE AMINO TRANSFERASE 25 U/L (15-37); BILIRUBIN,TOTAL 0.6 MG/DL (0.2-1.0); BLOOD UREA NITROGEN 37 mg/dL (7-18); CALCIUM 8.4 MG/DL (8.5-10.1); CARBON DIOXIDE 28 MMOL/L (21-32); CHLORIDE 100 MMOL/L (98-107); CREATININE 6.8 MG/DL (0.55-1.30); POTASSIUM 3.6 MMOL/L (3.5-5.1); SODIUM 140 MMOL/L (136-145)
[2019-06-15] MEDS: cefTRIAXone 1gm/D5W 55ml IVPB SCH ×2 (09:59)
[2019-06-15] MEDS: Heparin 5000 units/ml inj SUBQ SCH ×2 (10:02→20:33)
[2019-06-15] MEDS: Renvela 800mg Pkt ORAL SCH ×3 (10:02→17:42)
[2019-06-15] MEDS: Allopurinol 100mg Tab ORAL SCH (10:02)
[2019-06-15] MEDS: Nephrovite tab (Rena-Vite) ORAL SCH (10:03)
--- NOTE | 2019-06-15 10:30 | Diagnostic Imaging Report ---
Indication: Shortness of breath Technique: One view of the chest Comparison: 06/10/2016 Findings: Again demonstrated is diffuse interstitial disease. Or focal airspace disease is seen in the left midlung and right lung apex. There is slight blunting of the costophrenic sulci bilaterally, small pleural effusions suspected. The heart is enlarged. The aorta is tortuous ectatic and calcified. Interim placement of a right subclavian/innominate venous stent. Impression: Diffuse interstitial disease, with areas of dense parenchymal consolidation in the left midlung and right lung apex. Background interstitial disease appears similar in extent to the prior exam, may have a chronic component. Small bilateral pleural effusions Interim right subclavian/innominate venous stent placement
[2019-06-15 12:00] VITALS: BP 138/65
[2019-06-15] MEDS: Solu-MEDROL 125mg Inj IVP SCH (12:13)
--- NOTE | 2019-06-15 14:37 | Diagnostic Imaging Report ---
Clinical Indication: 74-year-old [place] male with history of stage II lung cancer diagnosed 12 years ago, history of chemotherapy and radiation,, now presents with shortness of breath and increased oxygen requirement Technique: Spiral acquisitions obtained through the chest. No IV contrast utilized, per referring physician request. Multiplanar reconstructions generated. Total dose length product 136 mGycm. CTDIvol(s) 3 mGy. Dose reduction achieved using automated exposure control Comparison: none Findings: Within the right upper lobe, there is extensive honeycombing and bronchiectasis. There is considerable confluent opacity in the right lung apex with associated pleural scarring. There is some upward retraction of the hilum. There is also a large area of confluent opacity abutting the major fissure. Interstitial septal prominence is seen within the right middle lobe, without definite honeycombing or bronchiectasis. Volume loss, bronchiectasis, and some honeycombing is seen in the right lower lobe. There is a small amount of pleural fluid on the right. Parenchymal calcifications and reticular distribution are seen in the posterior right lower lobe. The left upper lobe demonstrates hyperinflation and subpleural blebs near the apex, with reticular interstitial opacities seen within the lingular segments there is a large area of confluent opacity and left pulmonary hilum. This is associated with architectural distortion. Bronchiectasis, volume loss, and some confluent opacities are seen in the left lower lobe, with minimal honeycombing. There is some pleural calcification on the left. There is some parenchymal calcification in the posterior left lower lobe. There is a small left pleural effusion. The heart is mildly enlarged. The aorta is ectatic but not frankly aneurysmal, measuring 4 cm in diameter. The main pulmonary artery is ectatic, measuring 3.5 cm in diameter, and the right and left pulmonary arteries are likewise ectatic, each measuring approximately 2.5 cm. No pericardial effusion. There is a right innominate venous stent. There are large mediastinal collateral veins and likely atresia of the left innominate vein. Collaterals are seen in the bilateral chest wall as well. A calcified subcentimeter nodule is seen in the right thyroid lobe. No axillary or chest wall mass or adenopathy. The esophagus demonstrates equivocal mild wall thickening. The bones are unremarkable except for minimal degenerative spondylosis changes. The included upper abdominal anatomy demonstrates multiple gallstones. There are multiple bilateral renal cysts. There is extensive colonic diverticulosis. Impression: Extensive honeycombing in the right upper lobe. Bilateral bronchiectasis, reticular interstitial opacities, architectural distortion, and confluent opacities. Left upper lobe emphysema. 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 Prominent mediastinal and chest wall collaterals a suspicion of central venoocclusive disease Calcified subcentimeter right thyroid lobe nodule. No further follow-up necessary Equivocal mild esophageal wall thickening, could indicate esophagitis. Correlate with clinical findings Cholelithiasis Incidental finding bilateral renal cysts, colonic diverticulosis The CT scanner at [facility] is accredited by the [employer] and the scans are performed using protocols designed to limit radiation exposure to as low as reasonably achievable to attain images of sufficient resolution adequate for diagnostic evaluation.
[2019-06-15 16:00] VITALS: BP 157/68
--- NOTE | 2019-06-15 16:06 | NUR ---
CASE MANAGEMENT:REVIEW 74 YR OLD MALE BIBA FROM HOME PMH: LUNG CA. COPD. O2 DEPENDENT. ESRD ON HD SI:ACUTE RESPIRATORY FAILURE ANEMIA. COPD EXACERBATION (LUCA PLEURAL EFF) 98.7 82 16 147/69 98% ON 4L/NC WBC+14.0 BUN+35 CR+6.4 IS: DUONEB HHN IV SOLUMEDROL IV ZOSYN IV LEVAQUIN CXR BLOOD CX : TO TELEMETRY
--- NOTE | 2019-06-15 16:15 | History and Physical Report ---
DATE OF ADMISSION: 06/15/2019 REASON FOR ADMISSION: Pulmonary congestion, shortness of breath. HISTORY OF PRESENT ILLNESS: This is a 74-year-old male with history of stage II lung cancer, diagnosed approximately 12 years ago. The patient had chemotherapy and radiation, and has been two or three in the past one year. The patient also has congestive heart failure and also end-stage renal disease. The patient presents with worsening shortness of breath, worsening distress overall. The patient admits that he had a cough and difficulty mobilizing secretions. The patient has had similar symptoms in the past and had been admitted in the past to [facility]. The patient does get dialysis three times per week and his is at the bedside who is his primary caregiver. The patient denies any significant fevers, notes that symptoms have worsened. Also, notes orthopnea and noted increasing oxygen requirements. The patient's care discussed and reviewed. PAST MEDICAL HISTORY: Notable for hypertension, CAD, CHF, COPD, end-stage renal disease, history of lung cancer, history of chemotherapy and radiation. MEDICATIONS: Reviewed. ALLERGIES: Reviewed and reconciled. SOCIAL HISTORY: The patient is currently a nonsmoker, nondrinker. He does have history of smoking in the past. He lives with his . He is disabled and retired. FAMILY HISTORY: Otherwise noncontributory to the above. REVIEW OF SYSTEMS: All 10 points were reviewed. There is no stability, but weight has been stable. Refer to HPI. No other new findings. We discussed the exception of gastric tube feeding due to pneumonia and aspiration. The patient also has diabetes. PHYSICAL EXAMINATION: GENERAL: A well-developed male, but appears to be overall chronically ill. VITAL SIGNS: Reviewed. Blood pressure 147/92, with sats of 96% on 2 L. The patient is afebrile, 97.9. HEENT: Negative. NECK: Supple. EXTREMITIES: Grossly intact. LUNGS: With moderate breath sounds, reduced at both bases with some associated crackles. CARDIAC: S1, S2. Regular rate and rhythm. Soft systolic murmur left sternal border. ABDOMEN: Soft, nontender, nondistended. EXTREMITIES: No cyanosis or clubbing. There is no significant edema. LABORATORY DATA/IMAGING: Notable for diffuse interstitial changes with bilateral pleural effusion. The patient's laboratory data otherwise reviewed. BUN 37, creatinine 6.8. BNP was [address]69. Albumin is 2.3. The patient's CBC, white cell count 12.2, hemoglobin 8.4, and platelets of 240,000. IMPRESSION: 1. Interstitial changes. 2. Possible pulmonary edema. 3. Pleural effusion. 4. Possible fluid overload. 5. Leukocytosis. 6. Possible associated pneumonia. 7. Anemia. 8. End-stage renal disease. 9. History of congestive heart failure. 10. History of severe protein-calorie malnutrition. RECOMMENDATIONS: 1. Supportive care. 2. Empiric antibiotics. 3. Hemodialysis with ultrafiltration. 4. Consider CT of the chest. 5. Obtain ID evaluation to follow further. 6. Continue on IV antibiotics and monitor further changes and interventions. 7. We will reassess and recommend further for improvement, oxygen needs, and disposition. Tristen Squires M.D. DR: SHAWN JOB#: [id number] CC: VICTOR M
--- NOTE | 2019-06-15 16:30 | Consultation ---
DATE OF CONSULTATION: 06/15/2019 NEPHROLOGY CONSULTATION CONSULTING PHYSICIAN: Davis Diaz M.D. REFERRING PHYSICIAN: Tristen Squires M.D. REASON FOR CONSULTATION: End-stage renal disease, shortness of breath. HISTORY OF PRESENT ILLNESS: The patient is a 74-year-old man with end-stage renal disease, who presents with shortness of breath, abnormal chest x-ray. He also has apparently stage II lung cancer diagnosed 12 years ago and a possible recurrence. He is a poor historian and apparently no new treatment has been initiated for the above. He has dyspnea, worse on lying supine and is admitted for the above. He apparently was admitted to [facility] about a month ago. Directives are for DNR. ALLERGIES: To aspirin, possible paper tape. HOME MEDICATIONS: Include allopurinol, nifedipine, sevelamer, losartan, vitamin B complex. SURGERIES: Lung biopsies, AV fistula right arm, cataract surgery. HABITS: He is a former smoker, quit about 12 years ago. Also moderate alcohol at that time. SYSTEM REVIEW: HEAD, EYES, EARS, NOSE, AND THROAT: He has diminished hearing. He has had cataract surgery. ENDOCRINE: No treatment for diabetes. He is not aware of diabetes. PULMONARY: History of increasing shortness of breath as above. CARDIAC: Denies angina or [place]. GASTROINTESTINAL: No GI bleeding or ulcers. No recent nausea or vomiting. GENITOURINARY: Makes little urine. MUSCULOSKELETAL: He has generalized weakness. No inflammatory joints. NEUROLOGIC: No stroke, but he has had a history of difficulty walking. PHYSICAL EXAMINATION: GENERAL: The patient is alert man, not in severe distress. VITAL SIGNS: Temperature 97.9, pulse 69, respirations 20, pulse ox 93 on 2 L, blood pressure 147/72. HEAD, EYES, EARS, NOSE, AND THROAT: Sclerae are nonicteric. Ocular motions intact in all directions. Oral mucosa moist. NECK: No adenopathy. LUNGS: Diminished breath sounds at the bases. Few crackles. HEART: Rhythm is regular. I hear no murmur or rub. ABDOMEN: Soft without organomegaly or masses. EXTREMITIES: No edema, cyanosis, or clubbing. AV fistula in the right arm. NEUROLOGIC: He is alert and responsive. Cranial nerves are intact. No focal findings. DIAGNOSTIC DATA: Chest x-ray shows diffuse interstitial disease with areas of dense parenchymal consolidation left mid lung and right lung apex and background interstitial disease. He has a right subclavian innominate vein venous stent, small bilateral pleural effusions. IMPRESSION: 1. End-stage renal disease. 2. History of lung cancer. 3. Congestive heart failure acute on chronic. 4. Anemia of renal disease. 5. Elevated glucose 152. 6. Borderline troponin is 0.074 and 0.063. PLAN: Dialysis will be arranged. We will watch him closely in view of his comorbidities. Davis Diaz M.D. DR: FREDERIC JOB#: [id number] CC:
[2019-06-15] MEDS ORDERED: Lisinopril 20mg tab ORAL SCH (18:22)
--- NOTE | 2019-06-15 19:10 | NUR ---
OBTAINED REPORT FROM THOR BLANKENSHIP. PT IN NO APPARENT DISTRESS. CURRENTLY RECEIVING HEMODIALYSIS.
[2019-06-15 20:00] VITALS: BP 152/78
--- NOTE | 2019-06-15 20:23 | NUR ---
HAND-OFF: Report given to THOR Valencia. Pt in stable condition. Endorsed plan of care.
--- NOTE | 2019-06-15 22:10 | NUR ---
LEFT MESSAGE WITH MD BROWNING TO MAKE AWARE PT HAD 10 BEATS OF VTACH DURING DAY SHIFT AROUND 1830. PT CURRENTLY SR WITH HR 95, RECEIVING HEMODIALYSIS AND IN NO APPARENT DISTRESS. LEFT CALL BACK NUMBER IN MESSAGE.
--- NOTE | 2019-06-15 22:30 | NUR ---
PT HAD DIALYSIS TODAY, PER HD NURSE, PT HAD 2L OUT.
--- NOTE | 2019-06-15 23:00 | Consultation ---
DATE OF CONSULTATION: 06/15/2019 CARDIOLOGY CONSULTATION CONSULTING PHYSICIAN: Shamar Reyna M.D. REQUESTING PHYSICIAN: Tristen Squires M.D. REASON FOR CONSULTATION: Acute congestive heart failure. HISTORY OF PRESENT ILLNESS: This 74-year-old male has end-stage renal disease and is on hemodialysis. He presented to the hospital with several days of progressive cough, congestion, shortness of breath, and swelling. He has been compliant with his dialysis sessions. He also has been compliant with medications. Symptoms lasted all day, did not improve despite using pulmonary regimen and was noting symptoms, even worse lying flat and with activity. The patient has oxygen at home and increased his requirement from 3 to 5 liters. He did have cough productive of phlegm, but no fevers or chills. The patient is status post radiation therapy over a month ago for maintenance of his lung cancer, which was diagnosed many years ago and has been contained for the most part. PAST MEDICAL HISTORY: Includes hypertension, coronary atherosclerosis, congestive heart failure, COPD, lung cancer, end-stage renal disease, osteoarthritis, osteoporosis, paroxysmal atrial fibrillation. ALLERGIES: Include aspirin. FAMILY HISTORY: Noncontributory. SOCIAL HISTORY: He has a 50+ pack year smoking history and quit about 12 years ago. REVIEW OF SYSTEMS: A 10-point review of systems performed. All systems negative other than outlined above. PHYSICAL EXAMINATION: VITAL SIGNS: Blood pressure 147/69, pulse 82, respiratory rate 16, afebrile. NECK: Jugular venous pressure elevated. LUNGS: With diminished breath sounds and rhonchi. CARDIAC: Regular rhythm and rate. Frequent ectopic beats. Normal S1 and S2. A 1/6 systolic murmur at apex. ABDOMEN: Soft and nontender. EXTREMITIES: No clubbing, cyanosis, no edema. Good distal pulses. NEUROLOGIC: Nonfocal. LABORATORY AND DIAGNOSTIC DATA: EKG was performed and notable for sinus rhythm, left anterior superior hemiblock, voltage criteria for left ventricular hypertrophy. CT scan of the chest was performed and reviewed, notable for right upper lobe honeycombing and mass with emphysema, pleural effusions and possible esophageal wall thickening. White count 14, hemoglobin 9. Pro-natriuretic peptide over 14,000. Troponin #1, 0.074; troponin #2, 0.063; troponin #3, 0.033. BUN 37, creatinine 6.8, potassium 3.6. Albumin 2.3. IMPRESSION: 1. Chronic obstructive pulmonary disease exacerbation. 2. Paroxysmal bronchospasm. 3. Lung cancer. 4. Acute bronchitis and possible pneumonia. 5. Acute on chronic diastolic congestive heart failure. 6. End-stage renal disease, on hemodialysis. 7. Acute myocardial ischemia and possible non-ST elevation infarction. 8. Severe protein-calorie malnutrition. 9. Paroxysmal atrial ectopy. 10. Hyperglycemia, evaluate for possible type 2 diabetes mellitus. PLAN: 1. Cardiac monitoring. 2. Hemodialysis with ultrafiltration. 3. Check echocardiogram. 4. Angiotensin-converting enzyme inhibitor. 5. No role for diuretic therapy in this setting. 6. Inhaled bronchodilators. 7. Antimicrobials per primary care physician. 8. Protein supplement. 9. DVT prophylaxis. 10. Insulin coverage by sliding scale. Shamar Reyna M.D. DR: Davis JOB#: [id number] CC:
[2019-06-16] VITALS: BP 112/64
[2019-06-16] MEDS: Solu-MEDROL 125mg Inj IVP SCH ×2 (00:53→12:59)
[2019-06-16] MEDS: Albuterol ud Inhalation HHN SCH ×5 (03:34→19:34)
[2019-06-16 04:00] VITALS: BP 116/75
--- NOTE | 2019-06-16 07:10 | NUR ---
GAVE FULL REPORT TO THOR BLANKENSHIP. PT IN NO APPARENT DISTRESS.
--- NOTE | 2019-06-16 07:45 | NUR ---
NURSE NOTES: Received report from THOR Valencia. Pt A/Ox4, denies any pain, no s/sx of acute distress. Pt in 2L NC. Reported 2L out from HD yesterday. Bed on lowest position,call light within reach. Will continue to monitor.
[2019-06-16 08:00] VITALS: BP 120/60
--- NOTE | 2019-06-16 08:53 | General Progress Note ---
Assessment/Plan Assessment/Plan: IMPRESSION: 1. Bronchiectasis 2. Pneumonia 3. Pleural effusion. 4. Possible fluid overload. 5. Leukocytosis. 6. pulmonary fibrosis 7. Anemia. 8. End-stage renal disease. 9. History of congestive heart failure. 10. History of severe protein-calorie malnutrition. PLAN ID and cards antibiotics oxygen therapy will need outpatient monitoring of CT aware prior cancer history discussed impression, plan, and exam edited and reviewed in detail care discussed with RN Subjective Allergies: Coded Allergies: ASPIRIN (Verified Allergy, Unknown, 06/14/19) Uncoded Allergies: paper tape (Allergy, Severe, 11/18/18) SKIN RASH Subjective CT chest reviewed care noted Objective Last 24 Hour Vital Signs Date Time Temp Pulse Resp B/P (MAP) Pulse Ox O2 Delivery O2 Flow Rate FiO2 06/16/19 08:00 97.6 101 22 120/60 (80) 96 06/16/19 07:18 86 20 98 Nasal Cannula 3.0 32 84 20 97 06/16/19 07:18 97 Nasal Cannula 3.0 32 06/16/19 04:00 90 06/16/19 04:00 98.5 85 18 116/75 (89) 99 06/16/19 03:34 88 20 99 Nasal Cannula 3.0 32 85 20 96 06/16/19 00:00 99 06/16/19 00:00 97.3 97 20 112/64 (80) 98 06/15/19 23:52 99 20 98 Nasal Cannula 2.0 28 97 20 93 06/15/19 20:00 87 06/15/19 20:00 97.6 90 18 152/78 (102) 98 06/15/19 20:00 Nasal Cannula 2.0 06/15/19 19:53 96 Nasal Cannula 2.0 28 06/15/19 19:42 81 20 99 Nasal Cannula 2.0 28 83 20 96 06/15/19 16:00 96.6 80 20 157/68 (97) 92 06/15/19 15:37 80 20 98 Nasal Cannula 2.0 28 81 20 97 06/15/19 15:28 88 06/15/19 12:00 97.0 78 20 138/65 (89) 93 06/15/19 11:36 84 06/15/19 11:17 81 06/15/19 11:11 69 20 96 Nasal Cannula 2.0 28 68 20 93 Intake and Output 06/15/19 06/16/19 19:00 07:00 Intake Total 700 ml 2000 ml Balance 700 ml 2000 ml Intake Oral 700 ml Hemodialysis 2000 ml # Voids 1 # Bowel Movements 2 Laboratory Tests 06/15/19 11:30: Hepatitis B Surface Antigen Negative 06/15/19 15:20: Troponin I 0.033 06/15/19 23:15: Troponin I 0.049 Height (Feet): 5 Height (Inches): 6.00 Weight (Pounds): 128 Objective GENERAL: A well-developed male, but appears to be overall chronically ill. NECK: Supple. EXTREMITIES: Grossly intact. LUNGS: With moderate breath sounds, reduced at both bases with some associated crackles. CARDIAC: S1, S2. Regular rate and rhythm. Soft systolic murmur left sternal border. ABDOMEN: Soft, nontender, nondistended. EXTREMITIES: No cyanosis or clubbing. There is no significant edema. reviewed and edited Tristen Squires MD Jun 16, 2019 08:53
[2019-06-16] MEDS: Lisinopril 20mg tab ORAL SCH (09:00)
[2019-06-16] MEDS: Heparin 5000 units/ml inj SUBQ SCH ×3 (09:00→21:36)
[2019-06-16] MEDS: Allopurinol 100mg Tab ORAL SCH (09:58)
[2019-06-16] MEDS: Nephrovite tab (Rena-Vite) ORAL SCH (09:58)
[2019-06-16] MEDS: cefTRIAXone 1gm/D5W 55ml IVPB SCH ×2 (09:59)
[2019-06-16] MEDS: Renvela 800mg Pkt ORAL SCH ×3 (09:59→17:19)
[2019-06-16 12:00] VITALS: BP 125/56
--- NOTE | 2019-06-16 13:22 | Nephrology Progress Note ---
Assessment/Plan Problem List: (1) Bronchiectasis (2) Anemia in chronic kidney disease (3) End-stage renal disease (4) Acute exacerbation of CHF (congestive heart failure) (5) Pneumonia Plan stable on dialysi, continue antibiotics, pulm care, epogen Subjective Constitutional: Reports: weakness HEENT: Reports: no symptoms Genitourinary: Reports: no symptoms Neurologic/Psychiatric: Reports: no symptoms Objective Objective Last 24 Hour Vital Signs Date Time Temp Pulse Resp B/P (MAP) Pulse Ox O2 Delivery O2 Flow Rate FiO2 06/16/19 11:17 88 18 98 Nasal Cannula 2.0 28 82 22 98 06/16/19 09:58 101 120/60 06/16/19 09:00 Nasal Cannula 2.0 06/16/19 09:00 120/60 06/16/19 08:00 97.6 101 22 120/60 (80) 96 06/16/19 07:49 95 06/16/19 07:18 86 20 98 Nasal Cannula 3.0 32 84 20 97 06/16/19 07:18 97 Nasal Cannula 3.0 32 06/16/19 04:00 90 06/16/19 04:00 98.5 85 18 116/75 (89) 99 06/16/19 03:34 88 20 99 Nasal Cannula 3.0 32 85 20 96 06/16/19 00:00 99 06/16/19 00:00 97.3 97 20 112/64 (80) 98 06/15/19 23:52 99 20 98 Nasal Cannula 2.0 28 97 20 93 06/15/19 20:00 87 06/15/19 20:00 97.6 90 18 152/78 (102) 98 06/15/19 20:00 Nasal Cannula 2.0 06/15/19 19:53 96 Nasal Cannula 2.0 28 06/15/19 19:42 81 20 99 Nasal Cannula 2.0 28 83 20 96 06/15/19 16:00 96.6 80 20 157/68 (97) 92 06/15/19 15:37 80 20 98 Nasal Cannula 2.0 28 81 20 97 06/15/19 15:28 88 Intake and Output 06/15/19 06/16/19 19:00 07:00 Intake Total 700 ml 2000 ml Balance 700 ml 2000 ml Intake Oral 700 ml Hemodialysis 2000 ml # Voids 1 # Bowel Movements 2 Laboratory Tests 06/15/19 15:20: Troponin I 0.033 06/15/19 23:15: Troponin I 0.049 Height (Feet): 5 Height (Inches): 6.00 Weight (Pounds): 128 General Appearance: no apparent distress, alert Neck: normal alignment Cardiovascular: regular rhythm Respiratory/Chest: crackles/rales Abdomen: soft Extremities: no edema Neurologic: advanced manufacturing vice president II-XII grossly normal Davis Diaz MD Jun 16, 2019 13:22
--- NOTE | 2019-06-16 13:52 | CDS Physician Query ---
Clarification is required for compliance, coding accuracy, and to reflect severity of illness for this patient Dear Tristen Rojas MD Date: 06/16/2019 CDS: Erwin Ugarte This is a 74-year-old male with history of stage II lung cancer, diagnosed approximately 12 years ago. The patient had chemotherapy and radiation, and has been two or three in the past one year. The patient also has congestive heart failure and also end-stage renal disease. The patient presents with worsening shortness of breath, worsening distress overall. The patient admits that he had a cough and difficulty mobilizing secretions. IMPRESSION: 1. Bronchiectasis 2. Pneumonia 3. Pleural effusion. A diagnosis of "Pneumonia" is documented, and the patient is on: Please specify the underlying etiology: [] Gram +Positive Organism(s) [] Anaerobes [] Gram -Negative Organism(s) [] Aspiration [] Pseudomonas [] Mycoplasma [] MRSA [x] Not Applicable [] Other organism(s). Please specify: Present on Admission: [x] Yes [] No [] Clinically Undetermined Physician signature Date Please also document in your Progress Notes and/or Discharge Summary and indicate if the condition was present on admission. MTDD
--- NOTE | 2019-06-16 15:45 | Consultation ---
DATE OF CONSULTATION: 06/16/2019 INFECTIOUS DISEASES CONSULTATION CONSULTING PHYSICIAN: Joe Calderon M.D. REFERRING PHYSICIAN: Tristen Squires M.D. REASON FOR CONSULTATION: Pneumonia. HISTORY OF PRESENTING ILLNESS: This is a 74-year-old gentleman with history of hypertension, congestive heart failure, renal failure, lung cancer, status post radiation therapy who comes in with increasing cough and shortness of breath. He denies any fever. He was found to have pneumonia and an Infectious Diseases consultation has been obtained for antibiotics. PAST MEDICAL HISTORY: 1. History of hypertension. 2. Coronary artery disease. 3. Congestive heart failure. 4. COPD. 5. Renal failure. 6. Lung cancer, status post radiation therapy. MEDICATIONS: As an inpatient, he is on lisinopril, Solu-Medrol, allopurinol, Renvela, vitamin B and C, folic acid, nifedipine, Protonix, subcutaneous heparin, Plavix, ceftriaxone, albuterol, Tylenol, Mylanta. ALLERGIES: 1. Aspirin. 2. Paper tape. SOCIAL HISTORY: He used to be a smoker for 40 years before he quit. He has history of alcohol use, he does not drink anymore. No history of drug use. FAMILY HISTORY: Positive for prostate cancer in his father. REVIEW OF SYSTEMS: RESPIRATORY: No fever or chills. He has cough. He has shortness of breath. CARDIAC: No chest pain. No palpitation. No dizziness. No syncope. GASTROINTESTINAL: No nausea. No vomiting. No abdominal pain or diarrhea. PHYSICAL EXAMINATION: VITAL SIGNS: On examination, temperature of 97.6, T-max of 98.8, pulse of 101, respiratory rate of 22, blood pressure 120/60, O2 saturation of 96%. HEENT: Pupils equally reactive to light and accommodation. Mouth appears clean without thrush. NECK: Supple. No adenopathy. No JVD. CARDIOVASCULAR: Regular rate and rhythm. No murmurs. LUNGS: Clear to auscultation bilaterally. No crackles. No wheezes. ABDOMEN: Soft, nontender. No organomegaly. EXTREMITIES: No cyanosis, no clubbing, no edema. LABORATORY AND DIAGNOSTIC DATA: White count of 12.3, white count of 14 on 06/15/2019, hemoglobin 8.4, hematocrit 26.3, MCV 96, platelet count of 240,000 with neutrophils of 96%. Sodium 140, potassium 3.6, chloride 100, bicarb 28, BUN 37, creatinine 0.8, glucose 152, calcium 8.4. Total bilirubin 0.6. AST 25, ALT 13, alkaline phosphatase 71. Troponin 0.049. Total protein 7.9, albumin 2.3. Hepatitis B surface antigen is negative. Chest x-ray is showing diffuse interstitial disease with areas of dense parenchymal consolidation in the left mid lung and right lung apex. Small bilateral pleural effusions noted. Chest CT showing extensive honeycombing in the right upper lobe, bilateral bronchiectasis, reticular interstitial opacities, architectural distortion and confluent opacities, left upper lobe emphysema, underlying mass lesion cannot be excluded, small bilateral pleural effusion, pulmonary arterial hypertension. There could be mild esophageal wall thickening, cholelithiasis. Colonic diverticulosis noted. ASSESSMENT: 1. This is a 74-year-old gentleman with history of hypertension, renal failure, lung cancer, who comes in with cough and shortness of breath, would be concerned regarding possible postobstructive pneumonia. 2. History of hypertension. 3. History of coronary artery disease. 4. Congestive heart failure. 5. Leukocytosis is improving. PLAN: 1. Continue ceftriaxone. 2. We will order sputum for Gram stain and culture. 3. We will follow up cultures and adjust antibiotics accordingly. I would like to thank, Dr. Squires for this consultation. Joe Calderon M.D. DR: THOMAS JOB#: [id number] CC: Tristen Squires M.D.; Fax#: [phone]
[2019-06-16 16:00] VITALS: BP 134/60
[2019-06-16] MEDS: NovoLOG Insulin Flexpen SUBQ SCH ×2 (16:30→21:00)
--- NOTE | 2019-06-16 17:22 | NUR ---
CASE MANAGEMENT:REVIEW 06/16/19 SI: PNA. PLEURAL EFF. ESRD 97.8 88 20 134/60 94% ON 2L/NC IS: EPOETIN SQ MWF LISINOPRIL PO QD IV SOLUMEDROL Q12 PROCARDIA XL PO QD PROTONIX PO QD PLAVIX PO QD IV ROCEPHIN Q24 DUONEB HHN Q4HRS RTC : TELEMETRY STATUS DCP: FROM HOME
[2019-06-16 20:00] VITALS: BP 127/60
--- NOTE | 2019-06-16 20:02 | NUR ---
HAND-OFF: Report given to THOR Davies. Pt in stable condition, endorsed plan of care.
--- NOTE | 2019-06-16 20:03 | NUR ---
NURSE NOTES: Got report from Marina MCRAE. Pt in stable condition. Denies any pain. No s/s of distress or discomfort noted. Pt resting in bed comfortably. Bed in low and locked position, call light within reach, bedside table within reach. Continue to monitor.
[2019-06-16] MEDS ORDERED: Epoetin Alfa-EPBX(ESRD on dialysis)4000 units/ml vial SUBQ SCH (21:00)
[2019-06-16] MEDS: Epoetin Alfa-EPBX(ESRD on dialysis)3000 units/ml vial SUBQ SCH (21:24)
[2019-06-17] VITALS: BP 121/56
[2019-06-17] MEDS: Albuterol ud Inhalation HHN SCH ×7 (00:04→22:19)
[2019-06-17] MEDS: Solu-MEDROL 125mg Inj IVP SCH ×3 (00:15→23:40)
[2019-06-17 04:00] VITALS: BP 113/55
--- NOTE | 2019-06-17 06:10 | Progress Note ---
DATE: 06/16/2019 CARDIOLOGY PROGRESS NOTE SUBJECTIVE: less congestion and shortness of breath. Monitored rhythm sinus with atrial ectopics. No sustained atrial arrhythmias. OBJECTIVE: VITAL SIGNS: Blood pressure 120/60, heart rate 84 to 101, respiratory rate 20 to 22, and afebrile. LUNGS: Diminished breath sounds. Rhonchi. No wheezing. CARDIAC: Regular rhythm and rate. Normal S1 and S2. There is a 1/6 systolic apical murmur. ABDOMEN: Soft. EXTREMITIES: No edema. LABORATORY DATA: No new labs. IMPRESSION: 1. Bronchiectasis. 2. Lung cancer. 3. Community-acquired pneumonia. 4. Acute on chronic diastolic congestive heart failure. 5. End-stage renal disease. PLAN: 1. Antimicrobials. 2. Respiratory hygiene. 3. Bronchodilators. 4. Steroids. 5. Hemodialysis with ultrafiltration. 6. Titration of anti-failure regimen. 7. Epogen and iron supplements. Shamar Reyna M.D. DR: LAMONT JOB#: [id number] CC:
[2019-06-17] MEDS: NovoLOG Insulin Flexpen SUBQ SCH ×4 (06:30→20:52)
--- NOTE | 2019-06-17 07:15 | NUR ---
NURSE NOTES: Received report from THOR Davies. Pt A/Ox4, denies any pain. No s/sx of acute distress. Pt on 2L NC, IV on L FA 22g patent and asymptomatic. Pt scheduled to have dialysis today. Bed on lowest position, call light within reach. Will continue plan of care.
--- NOTE | 2019-06-17 07:20 | NUR ---
HAND-OFF: Report given to Marina MCRAE.
[2019-06-17 08:00] VITALS: BP 118/58
[2019-06-17] MEDS: Lisinopril 20mg tab ORAL SCH (09:00)
--- NOTE | 2019-06-17 09:16 | General Progress Note ---
Assessment/Plan Assessment/Plan: IMPRESSION: 1. Bronchiectasis 2. Pneumonia 3. Pleural effusion. 4. Possible fluid overload. 5. Leukocytosis. 6. pulmonary fibrosis 7. Anemia. 8. End-stage renal disease. 9. History of congestive heart failure. 10. History of severe protein-calorie malnutrition. PLAN ID and cards noted antibiotics as is oxygen therapy will need outpatient monitoring of CT aware prior cancer history discussed repeat imaging in am dc planning for next 2-3 days if improves impression, plan, and exam edited and reviewed in detail care discussed with RN Subjective Allergies: Coded Allergies: ASPIRIN (Verified Allergy, Unknown, 06/14/19) Uncoded Allergies: paper tape (Allergy, Severe, 11/18/18) SKIN RASH Subjective CT chest reviewed care noted cardiology reviewed Objective Last 24 Hour Vital Signs Date Time Temp Pulse Resp B/P (MAP) Pulse Ox O2 Delivery O2 Flow Rate FiO2 06/17/19 07:27 98 Nasal Cannula 3.0 32 06/17/19 07:26 84 18 98 Nasal Cannula 2.0 28 80 20 97 06/17/19 04:00 98.1 84 20 113/55 (74) 98 06/17/19 04:00 84 06/17/19 03:10 86 18 98 Nasal Cannula 2.0 28 83 18 96 06/17/19 00:04 86 16 96 Nasal Cannula 2.0 28 82 16 92 06/17/19 00:00 97.5 86 16 121/56 (77) 95 06/17/19 00:00 83 06/16/19 21:00 Nasal Cannula 2.0 06/16/19 20:00 86 06/16/19 20:00 97.9 87 16 127/60 (82) 98 06/16/19 19:36 97 Nasal Cannula 3.0 32 06/16/19 19:34 90 17 98 Nasal Cannula 2.0 28 87 20 97 06/16/19 16:00 97.8 88 20 134/60 (84) 94 06/16/19 15:45 85 06/16/19 15:22 83 17 98 Nasal Cannula 2.0 28 80 20 96 06/16/19 12:00 97.9 88 20 125/56 (79) 96 06/16/19 11:57 88 06/16/19 11:17 88 18 98 Nasal Cannula 2.0 28 82 22 98 06/16/19 09:58 101 120/60 Intake and Output 06/16/19 06/17/19 19:00 07:00 Intake Total 400 ml Output Total 200 ml Balance 200 ml Intake Oral 400 ml Output Urine Total 200 ml # Voids 1 1 Height (Feet): 5 Height (Inches): 6.00 Weight (Pounds): 128 Objective GENERAL: A well-developed male, but appears to be overall chronically ill. NECK: Supple. EXTREMITIES: Grossly intact. LUNGS: With moderate breath sounds, reduced at both bases with some associated crackles. CARDIAC: S1, S2. Regular rate and rhythm. Soft systolic murmur left sternal border. ABDOMEN: Soft, nontender, nondistended. EXTREMITIES: No cyanosis or clubbing. There is no significant edema. reviewed and edited Tristen Squires MD Jun 17, 2019 09:16
[2019-06-17] MEDS: Nephrovite tab (Rena-Vite) ORAL SCH (09:42)
[2019-06-17] MEDS: cefTRIAXone 1gm/D5W 55ml IVPB SCH ×2 (09:42)
[2019-06-17] MEDS: Renvela 800mg Pkt ORAL SCH ×3 (09:43→18:12)
[2019-06-17] MEDS: Allopurinol 100mg Tab ORAL SCH (09:43)
[2019-06-17] MEDS: Heparin 5000 units/ml inj SUBQ SCH ×2 (09:47→20:54)
[2019-06-17 12:00] VITALS: BP 104/47
--- NOTE | 2019-06-17 12:39 | Nephrology Progress Note ---
Assessment/Plan Problem List: (1) Bronchiectasis (2) Anemia in chronic kidney disease (3) End-stage renal disease (4) Acute exacerbation of CHF (congestive heart failure) (5) Pneumonia Plan stable on dialysi, continue antibiotics, pulm care, epogen Subjective Constitutional: Reports: weakness HEENT: Reports: no symptoms Genitourinary: Reports: no symptoms Neurologic/Psychiatric: Reports: no symptoms Objective Objective Last 24 Hour Vital Signs Date Time Temp Pulse Resp B/P (MAP) Pulse Ox O2 Delivery O2 Flow Rate FiO2 06/17/19 11:16 85 16 100 Nasal Cannula 2.0 28 88 16 100 06/17/19 09:00 Nasal Cannula 2.0 06/17/19 08:00 96.8 89 20 118/58 (78) 91 06/17/19 07:52 96 06/17/19 07:27 98 Nasal Cannula 3.0 32 06/17/19 07:26 84 18 98 Nasal Cannula 2.0 28 80 20 97 06/17/19 04:00 98.1 84 20 113/55 (74) 98 06/17/19 04:00 84 06/17/19 03:10 86 18 98 Nasal Cannula 2.0 28 83 18 96 06/17/19 00:04 86 16 96 Nasal Cannula 2.0 28 82 16 92 06/17/19 00:00 97.5 86 16 121/56 (77) 95 06/17/19 00:00 83 06/16/19 21:00 Nasal Cannula 2.0 06/16/19 20:00 86 06/16/19 20:00 97.9 87 16 127/60 (82) 98 06/16/19 19:36 97 Nasal Cannula 3.0 32 06/16/19 19:34 90 17 98 Nasal Cannula 2.0 28 87 20 97 06/16/19 16:00 97.8 88 20 134/60 (84) 94 06/16/19 15:45 85 06/16/19 15:22 83 17 98 Nasal Cannula 2.0 28 80 20 96 Intake and Output 06/16/19 06/17/19 19:00 07:00 Intake Total 400 ml Output Total 200 ml Balance 200 ml Intake Oral 400 ml Output Urine Total 200 ml # Voids 1 1 Height (Feet): 5 Height (Inches): 6.00 Weight (Pounds): 128 General Appearance: no apparent distress, alert EENT: normal ENT inspection Neck: normal alignment Cardiovascular: regular rhythm Respiratory/Chest: lungs clear Abdomen: non tender, soft Extremities: no edema Neurologic: 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
[2019-06-17] MEDS ORDERED: Heparin Sod 1000 units/ml 10ml IV PRN (13:00)
[2019-06-17 16:00] VITALS: BP 107/49
--- NOTE | 2019-06-17 19:50 | NUR ---
HAND-OFF: Report given to THOR Davies. Pt in stable condition. Endorsed plan of care.
[2019-06-17 20:00] VITALS: BP 93/55
--- NOTE | 2019-06-17 22:45 | Progress Note ---
DATE: 06/17/2019 CARDIOLOGY PROGRESS NOTE SUBJECTIVE: The patient is on hemodialysis and ultrafiltration for volume management. No new complaints. Shortness of breath has improved. He remains on IV antimicrobials and respiratory hygiene. OBJECTIVE: VITAL SIGNS: Blood pressure 118/58, pulse 89, and respiratory rate 20. LUNGS: Bilateral breath sounds. Few rales. CARDIAC: Regular rhythm and rate. Normal S1 and S2. ABDOMEN: Soft. EXTREMITIES: Trace edema. LABORATORY DATA: No new lab studies. IMPRESSION: 1. Acute on chronic diastolic congestive heart failure. 2. Lung cancer. 3. COPD exacerbation. 4. Community-acquired pneumonia. 5. End-stage renal disease. PLAN: 1. Antimicrobials. 2. Respiratory hygiene. 3. Bronchodilators. 4. Steroid taper per primary care physician. 5. Maintain current cardiovascular regimen blood pressure control is adequate. 6. Continue hemodialysis with ultrafiltration for volume management. Shamar Reyna M.D. DR: LAMONT JOB#: [id number] CC:
[2019-06-18] VITALS: BP 105/59
[2019-06-18] MEDS: Albuterol ud Inhalation HHN SCH ×6 (02:17→23:24)
[2019-06-18 04:00] VITALS: BP 100/64
[2019-06-18] MEDS: NovoLOG Insulin Flexpen SUBQ SCH ×4 (06:28→21:00)
--- NOTE | 2019-06-18 07:20 | NUR ---
HAND-OFF: Report given to Jaden MCRAE.
--- NOTE | 2019-06-18 07:53 | NUR ---
NURSE NOTES: Received pt in bed, AAO x 4. On 2L/min. No c/o of pain/distress. IV on LFA 22g noted, with SL. at the bedside. Side rails x2. Bed in the lowest and locked. Call light within reach. Will continue to monitor
[2019-06-18 08:00] VITALS: BP 132/55
[2019-06-18] MEDS: Renvela 800mg Pkt ORAL SCH ×3 (08:55→17:06)
[2019-06-18] MEDS: Lisinopril 20mg tab ORAL SCH (08:56)
[2019-06-18] MEDS: Nephrovite tab (Rena-Vite) ORAL SCH (08:56)
[2019-06-18] MEDS: Allopurinol 100mg Tab ORAL SCH (08:56)
[2019-06-18] MEDS: cefTRIAXone 1gm/D5W 55ml IVPB SCH ×2 (08:57)
[2019-06-18] MEDS: Heparin 5000 units/ml inj SUBQ SCH (08:58)
--- NOTE | 2019-06-18 10:47 | General Progress Note ---
Assessment/Plan Assessment/Plan: IMPRESSION: 1. Bronchiectasis 2. Pneumonia 3. Pleural effusion. 4. Possible fluid overload. 5. Leukocytosis. 6. pulmonary fibrosis 7. Anemia. 8. End-stage renal disease. 9. History of congestive heart failure. 10. History of severe protein-calorie malnutrition. PLAN ID and cards noted antibiotics as is oxygen therapy will need outpatient monitoring of CT aware and discussed prior cancer history discussed repeat imaging today dc planning in am if stable impression, plan, and exam edited and reviewed in detail care discussed with RN Subjective Allergies: Coded Allergies: ASPIRIN (Verified Allergy, Unknown, 06/14/19) Uncoded Allergies: paper tape (Allergy, Severe, 11/18/18) SKIN RASH Subjective on oxygen care noted cardiology reviewed Objective Last 24 Hour Vital Signs Date Time Temp Pulse Resp B/P (MAP) Pulse Ox O2 Delivery O2 Flow Rate FiO2 06/18/19 09:00 Nasal Cannula 2.0 06/18/19 08:57 92 132/55 06/18/19 08:56 132/55 06/18/19 08:00 95 06/18/19 08:00 98.4 92 20 132/55 (80) 98 06/18/19 07:12 92 Nasal Cannula 2.0 28 06/18/19 07:12 84 18 99 Nasal Cannula 2.0 28 82 18 95 06/18/19 04:00 87 06/18/19 04:00 97.0 77 18 100/64 (76) 98 06/18/19 02:17 84 20 100 Nasal Cannula 2.0 28 82 18 98 06/18/19 00:00 90 06/18/19 00:00 98.8 83 19 105/59 (74) 97 06/17/19 22:29 80 20 99 Nasal Cannula 2.0 28 79 18 97 06/17/19 21:00 Nasal Cannula 2.0 06/17/19 20:00 91 06/17/19 20:00 97.4 87 18 93/55 (68) 99 06/17/19 19:26 84 18 99 Nasal Cannula 2.0 28 86 18 98 06/17/19 19:15 98 Nasal Cannula 2.0 28 06/17/19 16:22 84 06/17/19 16:00 98.1 72 20 107/49 (68) 96 06/17/19 15:54 89 16 99 Nasal Cannula 2.0 28 85 16 98 2/15/20 12:00 97.7 79 20 104/47 (66) 93 06/17/19 11:51 83 06/17/19 11:16 85 16 100 Nasal Cannula 2.0 28 88 16 100 Intake and Output 06/17/19 06/18/19 19:00 07:00 Intake Total 390 ml Balance 390 ml Intake Oral 390 ml # Voids 2 # Bowel Movements 1 1 Labs Test 06/15/19 11:30 06/15/19 15:20 06/15/19 23:15 Hepatitis B Surface Antigen Negative (Negative) Troponin I 0.033 ng/mL (0.000-0.056) 0.049 ng/mL (0.000-0.056) Height (Feet): 5 Height (Inches): 6.00 Weight (Pounds): 128 Objective GENERAL: A well-developed male, but appears to be overall chronically ill. NECK: Supple. EXTREMITIES: Grossly intact. LUNGS: With moderate breath sounds, reduced at both bases with some associated crackles. CARDIAC: S1, S2. Regular rate and rhythm. Soft systolic murmur left sternal border. ABDOMEN: Soft, nontender, nondistended. EXTREMITIES: No cyanosis or clubbing. There is no significant edema. reviewed and edited Tristen Squires MD Jun 18, 2019 10:47
[2019-06-18 12:00] VITALS: BP_SYST 128; BP_SYST 161; BP_DIAS 54; BP_DIAS 70
--- NOTE | 2019-06-18 12:31 | Infectious Diseases Prog Note ---
Assessment/Plan Assessment/Plan IMPRESSION: 1.Pneumonia 2. History of hypertension. 3. History of coronary artery disease. 4. Congestive heart failure. 5. Leukocytosis is improving. 6. Bronchiectasis 7. Pulmonary fibrosis 8. Anemia P: Continue Rocephin Stool OB Subjective Constitutional: Reports: no symptoms, other - feels better Respiratory: Reports: shortness of breath, dry cough Cardiovascular: Reports: no symptoms Gastrointestinal/Abdominal: Reports: blood in stool Genitourinary: Reports: no symptoms Neurologic: Reports: no symptoms Allergies: Coded Allergies: ASPIRIN (Verified Allergy, Unknown, 06/14/19) Uncoded Allergies: paper tape (Allergy, Severe, 11/18/18) SKIN RASH Objective Vital Signs Last 24 Hour Vital Signs Date Time Temp Pulse Resp B/P (MAP) Pulse Ox O2 Delivery O2 Flow Rate FiO2 06/18/19 11:26 80 18 100 Nasal Cannula 2.0 28 82 18 98 06/18/19 09:00 Nasal Cannula 2.0 06/18/19 08:57 92 132/55 06/18/19 08:56 132/55 06/18/19 08:00 95 06/18/19 08:00 98.4 92 20 132/55 (80) 98 06/18/19 07:12 92 Nasal Cannula 2.0 28 06/18/19 07:12 84 18 99 Nasal Cannula 2.0 28 82 18 95 06/18/19 04:00 87 06/18/19 04:00 97.0 77 18 100/64 (76) 98 06/18/19 02:17 84 20 100 Nasal Cannula 2.0 28 82 18 98 06/18/19 00:00 90 06/18/19 00:00 98.8 83 19 105/59 (74) 97 06/17/19 22:29 80 20 99 Nasal Cannula 2.0 28 79 18 97 06/17/19 21:00 Nasal Cannula 2.0 06/17/19 20:00 91 06/17/19 20:00 97.4 87 18 93/55 (68) 99 06/17/19 19:26 84 18 99 Nasal Cannula 2.0 28 86 18 98 06/17/19 19:15 98 Nasal Cannula 2.0 28 06/17/19 16:22 84 06/17/19 16:00 98.1 72 20 107/49 (68) 96 06/17/19 15:54 89 16 99 Nasal Cannula 2.0 28 85 16 98 Height (Feet): 5 Height (Inches): 6.00 Weight (Pounds): 128 General Appearance: no acute distress HEENT: mucous membranes moist Respiratory/Chest: lungs clear, other - oxygen by nasal canula Cardiovascular: normal rate Abdomen: soft, non tender Extremities: no edema Neurologic/Psychiatric: alert, oriented x 3, responsive Microbiology Date/Time Source Procedure Growth Status 06/16/19 15:15 Sputum Gram Stain - Final Complete 06/16/19 15:15 Sputum Culture - Final Sonali Albicans Usual Respiratory Mimi Complete Current Medications Medications (Trade) Dose Ordered Sig/Briseyda Route PRN Reason Start Time Stop Time Status Last Admin Dose Admin Acetaminophen (Tylenol) 650 mg Q4H PRN ORAL Mild Pain/Temp > 100.5 06/15/19 06:45 07/15/19 06:44 Al Hydroxide/Mg Hydroxide (Mylanta) 30 ml Q4H PRN ORAL GERD 06/15/19 06:45 07/15/19 06:44 Albuterol Sulfate (Proventil) 2.5 mg EVERY 4 HOURS PRN HHN Shortness of Breath 06/15/19 06:45 06/20/19 06:44 Albuterol Sulfate (Proventil) 2.5 mg Q4HRT HHN 06/15/19 07:00 06/20/19 06:59 06/18/19 11:26 Allopurinol (Zyloprim) 100 mg DAILY ORAL 06/15/19 09:00 07/15/19 08:59 06/18/19 08:56 Ceftriaxone Sodium 1 gm/ Dextrose 55 ml @ 110 mls/hr Q24H IVPB 06/15/19 09:00 06/22/19 08:59 06/18/19 08:57 Clopidogrel Bisulfate (Plavix) 75 mg DAILY ORAL 06/15/19 09:00 07/15/19 08:59 06/18/19 08:56 Dextrose (Dextrose 50%) 25 ml Q30M PRN IV Hypoglycemia 06/16/19 13:30 07/16/19 13:29 Dextrose (Dextrose 50%) 50 ml Q30M PRN IV Hypoglycemia 06/16/19 13:30 07/16/19 13:29 Epoetin Jayy (Epoetin Jayy(ESRD on dialysis)) 3,000 unit WED-WED-WED SUBQ 06/16/19 21:00 07/16/19 20:59 06/16/19 21:24 Epoetin Jayy (Epoetin Jayy(ESRD on dialysis)) 4,000 unit WED-WED-WED SUBQ 06/16/19 21:00 07/16/19 20:59 06/16/19 21:24 Heparin Sodium (Porcine) (Heparin 5000 units/ml) 5,000 units EVERY 12 HOURS SUBQ 06/15/19 09:00 07/15/19 08:59 06/18/19 08:58 Heparin Sodium (Porcine) (Heparin Sod 1000 units/ml 10ml) 2,000 unit ONCE PRN IV FOR HD USE ONLY 06/17/19 13:00 06/19/19 23:59 Insulin Aspart (NovoLOG) BEFORE MEALS AND HS SUBQ 06/16/19 16:30 07/16/19 16:29 Lisinopril (PriniviL) 20 mg DAILY ORAL 06/16/19 09:00 07/16/19 08:59 06/18/19 08:56 Methylprednisolone Sodium Succinate (Solu-MEDROL) 60 mg DAILY IVP 06/19/19 09:00 07/15/19 11:59 Nifedipine (Procardia XL) 60 mg DAILY ORAL 06/15/19 09:00 07/15/19 08:59 06/18/19 08:57 Pantoprazole (Protonix) 40 mg DAILY ORAL 06/15/19 09:00 07/15/19 08:59 06/18/19 08:57 Sevelamer Carbonate (Renvela) 800 mg THREE TIMES A DAY ORAL 06/15/19 09:00 07/15/19 08:59 06/18/19 08:55 Sodium Chloride 1,000 ml @ 500 mls/hr Q2H PRN IVLG sbp<90 during hd 06/17/19 13:00 06/19/19 23:59 Vitamin B Complex/ Vit C/Folic Acid (Nephrovite) 1 tab DAILY ORAL 06/15/19 09:00 07/15/19 08:59 06/18/19 08:56 Bao Mantilla MD Jun 18, 2019 12:31
--- NOTE | 2019-06-18 12:46 | Nephrology Progress Note ---
Assessment/Plan Problem List: (1) Bronchiectasis (2) Anemia in chronic kidney disease (3) End-stage renal disease (4) Acute exacerbation of CHF (congestive heart failure) (5) Pneumonia Plan stable on dialysi, continue antibiotics, pulm care, epogen Subjective Constitutional: Reports: weakness HEENT: Reports: no symptoms Genitourinary: Reports: no symptoms Neurologic/Psychiatric: Reports: no symptoms Objective Objective Last 24 Hour Vital Signs Date Time Temp Pulse Resp B/P (MAP) Pulse Ox O2 Delivery O2 Flow Rate FiO2 06/18/19 11:26 80 18 100 Nasal Cannula 2.0 28 82 18 98 06/18/19 09:00 Nasal Cannula 2.0 06/18/19 08:57 92 132/55 06/18/19 08:56 132/55 06/18/19 08:00 95 06/18/19 08:00 98.4 92 20 132/55 (80) 98 06/18/19 07:12 92 Nasal Cannula 2.0 28 06/18/19 07:12 84 18 99 Nasal Cannula 2.0 28 82 18 95 06/18/19 04:00 87 06/18/19 04:00 97.0 77 18 100/64 (76) 98 06/18/19 02:17 84 20 100 Nasal Cannula 2.0 28 82 18 98 06/18/19 00:00 90 06/18/19 00:00 98.8 83 19 105/59 (74) 97 06/17/19 22:29 80 20 99 Nasal Cannula 2.0 28 79 18 97 06/17/19 21:00 Nasal Cannula 2.0 06/17/19 20:00 91 06/17/19 20:00 97.4 87 18 93/55 (68) 99 06/17/19 19:26 84 18 99 Nasal Cannula 2.0 28 86 18 98 06/17/19 19:15 98 Nasal Cannula 2.0 28 06/17/19 16:22 84 06/17/19 16:00 98.1 72 20 107/49 (68) 96 06/17/19 15:54 89 16 99 Nasal Cannula 2.0 28 85 16 98 Intake and Output 06/17/19 06/18/19 19:00 07:00 Intake Total 390 ml Balance 390 ml Intake Oral 390 ml # Voids 2 # Bowel Movements 1 1 Height (Feet): 5 Height (Inches): 6.00 Weight (Pounds): 128 General Appearance: no apparent distress, alert EENT: normal ENT inspection Neck: normal alignment Cardiovascular: normal rate, regular rhythm Respiratory/Chest: crackles/rales Abdomen: non tender, soft Extremities: no edema 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
[2019-06-18 16:00] VITALS: BP 99/48
--- NOTE | 2019-06-18 19:26 | NUR ---
HAND-OFF: Report given to THOR Davies.
[2019-06-18 20:00] VITALS: BP 105/51
--- NOTE | 2019-06-18 22:15 | Progress Note ---
DATE: 06/18/2019 CARDIOLOGY PROGRESS NOTE SUBJECTIVE: Less congestion. No chest pain. Remains on nasal oxygen with saturations of 92% on 2 liters. OBJECTIVE: VITAL SIGNS: Blood pressure 133/55, heart rate 92, respiratory rate 20. LUNGS: Bilateral breath sounds. Rhonchi. Wheezing. HEART: Regular rhythm and rate. Normal S1, S2 with a fourth heart sound. ABDOMEN: Soft. No edema. LABORATORY DATA: No new lab studies. IMPRESSION: 1. Lung cancer. 2. Community-acquired pneumonia. 3. Acute on chronic diastolic congestive heart failure. 4. Hypertensive heart disease. 5. End-stage renal disease, on hemodialysis. 6. Acute myocardial ischemia, resolved. PLAN: 1. Respiratory hygiene. 2. Bronchodilators. 3. Antimicrobials. 4. Steroid taper. 5. Ultrafiltration for volume management. 6. Cautious titration of anti-failure drugs. 7. No anti-platelet therapy in view of aspirin allergy. Shamar Reyna M.D. DR: DELMA JOB#: [id number] CC:
[2019-06-19] VITALS: BP 111/50
[2019-06-19] MEDS: Albuterol ud Inhalation HHN SCH ×5 (03:31→20:54)
[2019-06-19 04:00] VITALS: BP 108/46
[2019-06-19] MEDS: NovoLOG Insulin Flexpen SUBQ SCH ×4 (06:30→21:00)
--- NOTE | 2019-06-19 07:20 | NUR ---
HAND-OFF: Report given to Marina MCRAE.
[2019-06-19 08:00] VITALS: BP 111/54
--- NOTE | 2019-06-19 08:00 | NUR ---
NURSE NOTES: Received report from THOR Davies. Pt observed sleeping in bed, on 2L NC, no s/sx of acute distress. Bed on lowest position, call light within reach. Will continue plan of care.
--- NOTE | 2019-06-19 08:14 | General Progress Note ---
Assessment/Plan Assessment/Plan: IMPRESSION: 1. Bronchiectasis 2. Pneumonia 3. Pleural effusion. 4. Possible fluid overload. 5. Leukocytosis. 6. pulmonary fibrosis 7. Anemia. 8. End-stage renal disease. 9. History of congestive heart failure. 10. History of severe protein-calorie malnutrition. PLAN ID and cards noted antibiotics - change to po ceftin oxygen therapy will need outpatient monitoring of CT aware and discussed- epogen needed prior cancer history discussed repeat imaging today dc planning with HH with close outpatient follow up HD as an outpatient impression, plan, and exam edited and reviewed in detail care discussed with RN Subjective Allergies: Coded Allergies: ASPIRIN (Verified Allergy, Unknown, 06/14/19) Uncoded Allergies: paper tape (Allergy, Severe, 11/18/18) SKIN RASH Subjective on oxygen care noted cardiology reviewed anemic but on HD Objective Last 24 Hour Vital Signs Date Time Temp Pulse Resp B/P (MAP) Pulse Ox O2 Delivery O2 Flow Rate FiO2 06/19/19 07:57 98 Nasal Cannula 2.0 28 06/19/19 07:57 74 18 100 Nasal Cannula 2.0 28 78 18 98 06/19/19 04:00 80 06/19/19 04:00 98.1 76 20 108/46 (66) 95 06/19/19 03:31 84 18 100 Nasal Cannula 2.0 28 81 16 98 06/19/19 00:00 98.2 78 20 111/50 (70) 95 06/19/19 00:00 76 06/18/19 23:24 81 18 99 Nasal Cannula 2.0 28 79 16 97 06/18/19 21:00 Nasal Cannula 2.0 06/18/19 20:00 98.4 82 20 105/51 (69) 96 06/18/19 19:14 82 18 98 Nasal Cannula 2.0 28 78 20 94 06/18/19 19:14 94 Nasal Cannula 2.0 28 06/18/19 16:08 78 18 100 Nasal Cannula 2.0 28 84 18 98 06/18/19 16:00 82 06/18/19 16:00 97.9 82 20 99/48 (65) 96 06/18/19 12:00 97.9 83 20 128/54 (78) 100 06/18/19 12:00 92 06/18/19 11:26 80 18 100 Nasal Cannula 2.0 28 82 18 98 06/18/19 09:00 Nasal Cannula 2.0 06/18/19 08:57 92 132/55 06/18/19 08:56 132/55 Intake and Output 06/18/19 06/19/19 19:00 07:00 Intake Total 390 ml 240 ml Balance 390 ml 240 ml Intake Oral 390 ml 240 ml # Voids 2 # Bowel Movements 1 Laboratory Tests 06/18/19 12:37: Stool Occult Blood Positive Height (Feet): 5 Height (Inches): 6.00 Weight (Pounds): 128 Objective GENERAL: A well-developed male, but appears to be overall chronically ill. NECK: Supple. EXTREMITIES: Grossly intact. LUNGS: With moderate breath sounds, reduced at both bases with some associated crackles. CARDIAC: S1, S2. Regular rate and rhythm. Soft systolic murmur left sternal border. ABDOMEN: Soft, nontender, nondistended. EXTREMITIES: No cyanosis or clubbing. There is no significant edema. reviewed and edited Tristen Squires MD Jun 19, 2019 08:14
[2019-06-19] MEDS: Lisinopril 20mg tab ORAL SCH (09:00)
[2019-06-19] MEDS: Allopurinol 100mg Tab ORAL SCH (09:58)
[2019-06-19] MEDS: Nephrovite tab (Rena-Vite) ORAL SCH (09:59)
[2019-06-19] MEDS: cefTRIAXone 1gm/D5W 55ml IVPB SCH ×2 (09:59)
[2019-06-19] MEDS: Solu-MEDROL 125mg Inj IVP SCH (09:59)
[2019-06-19] MEDS: Renvela 800mg Pkt ORAL SCH ×3 (09:59→17:25)
--- NOTE | 2019-06-19 10:32 | Infectious Diseases Prog Note ---
Assessment/Plan Assessment/Plan antibiotics : ceftriaxone A 1. pneumonia 2. bronchiectasis 3. emphysema 4. pulmonary fibrosis 5. leucocytosis improving 6. renal failure 7. lung cancer 8. hypertension P 1. d/c ceftriaxone 2. start and continue po doxycycline 2 more days 3. will follow up cultures Subjective Constitutional: Denies: fever, chills Respiratory: Reports: productive cough - decreased; Denies: shortness of breath Gastrointestinal/Abdominal: Denies: nausea, vomiting, diarrhea Musculoskeletal: Denies: pain Allergies: Coded Allergies: ASPIRIN (Verified Allergy, Unknown, 06/14/19) Uncoded Allergies: paper tape (Allergy, Severe, 11/18/18) SKIN RASH Objective Vital Signs Last 24 Hour Vital Signs Date Time Temp Pulse Resp B/P (MAP) Pulse Ox O2 Delivery O2 Flow Rate FiO2 06/19/19 09:00 111/54 06/19/19 09:00 79 111/54 06/19/19 08:00 98.0 79 20 111/54 (73) 99 06/19/19 07:57 98 Nasal Cannula 2.0 28 06/19/19 07:57 74 18 100 Nasal Cannula 2.0 28 78 18 98 06/19/19 04:00 80 06/19/19 04:00 98.1 76 20 108/46 (66) 95 06/19/19 03:31 84 18 100 Nasal Cannula 2.0 28 81 16 98 06/19/19 00:00 98.2 78 20 111/50 (70) 95 06/19/19 00:00 76 06/18/19 23:24 81 18 99 Nasal Cannula 2.0 28 79 16 97 06/18/19 21:00 Nasal Cannula 2.0 06/18/19 20:00 98.4 82 20 105/51 (69) 96 06/18/19 19:14 82 18 98 Nasal Cannula 2.0 28 78 20 94 06/18/19 19:14 94 Nasal Cannula 2.0 28 06/18/19 16:08 78 18 100 Nasal Cannula 2.0 28 84 18 98 06/18/19 16:00 82 06/18/19 16:00 97.9 82 20 99/48 (65) 96 06/18/19 12:00 97.9 83 20 128/54 (78) 100 06/18/19 12:00 92 06/18/19 11:26 80 18 100 Nasal Cannula 2.0 28 82 18 98 Height (Feet): 5 Height (Inches): 6.00 Weight (Pounds): 128 Respiratory/Chest: lungs clear Cardiovascular: normal rate, regular rhythm, no gallop/murmur Abdomen: soft, non tender Extremities: no edema Microbiology Date/Time Source Procedure Growth Status 06/16/19 15:15 Sputum Gram Stain - Final Complete 06/16/19 15:15 Sputum Culture - Final Sonali Albicans Usual Respiratory Mimi Complete Laboratory Tests Test 06/18/19 12:37 Stool Occult Blood Positive (NEGATIVE) Current Medications Medications (Trade) Dose Ordered Sig/Briseyda Route PRN Reason Start Time Stop Time Status Last Admin Dose Admin Acetaminophen (Tylenol) 650 mg Q4H PRN ORAL Mild Pain/Temp > 100.5 06/15/19 06:45 07/15/19 06:44 Al Hydroxide/Mg Hydroxide (Mylanta) 30 ml Q4H PRN ORAL GERD 06/15/19 06:45 07/15/19 06:44 Albuterol Sulfate (Proventil) 2.5 mg EVERY 4 HOURS PRN HHN Shortness of Breath 06/15/19 06:45 06/20/19 06:44 Albuterol Sulfate (Proventil) 2.5 mg Q4HRT HHN 06/15/19 07:00 06/20/19 06:59 06/19/19 07:47 Allopurinol (Zyloprim) 100 mg DAILY ORAL 06/15/19 09:00 07/15/19 08:59 06/19/19 09:58 Ceftriaxone Sodium 1 gm/ Dextrose 55 ml @ 110 mls/hr Q24H IVPB 06/15/19 09:00 06/22/19 08:59 06/19/19 09:59 Clopidogrel Bisulfate (Plavix) 75 mg DAILY ORAL 06/15/19 09:00 07/15/19 08:59 06/18/19 08:56 Dextrose (Dextrose 50%) 25 ml Q30M PRN IV Hypoglycemia 06/16/19 13:30 07/16/19 13:29 Dextrose (Dextrose 50%) 50 ml Q30M PRN IV Hypoglycemia 06/16/19 13:30 07/16/19 13:29 Epoetin Jayy (Epoetin Jayy(ESRD on dialysis)) 3,000 unit WED-WED-WED SUBQ 06/16/19 21:00 07/16/19 20:59 06/16/19 21:24 Epoetin Jayy (Epoetin Jayy(ESRD on dialysis)) 4,000 unit WED- SUBQ 06/16/19 21:00 07/16/19 20:59 06/16/19 21:24 Insulin Aspart (NovoLOG) BEFORE MEALS AND HS SUBQ 06/16/19 16:30 07/16/19 16:29 Lisinopril (PriniviL) 20 mg DAILY ORAL 06/16/19 09:00 07/16/19 08:59 06/18/19 08:56 Methylprednisolone Sodium Succinate (Solu-MEDROL) 60 mg DAILY IVP 06/19/19 09:00 07/15/19 11:59 06/19/19 09:59 Nifedipine (Procardia XL) 60 mg DAILY ORAL 06/15/19 09:00 07/15/19 08:59 06/18/19 08:57 Pantoprazole (Protonix) 40 mg DAILY ORAL 06/15/19 09:00 07/15/19 08:59 06/19/19 09:59 Sevelamer Carbonate (Renvela) 800 mg THREE TIMES A DAY ORAL 06/15/19 09:00 07/15/19 08:59 06/19/19 09:59 Sodium Chloride 1,000 ml @ 500 mls/hr Q2H PRN IVLG sbp<90 during hd 06/17/19 13:00 06/19/19 23:59 Vitamin B Complex/ Vit C/Folic Acid (Nephrovite) 1 tab DAILY ORAL 06/15/19 09:00 07/15/19 08:59 06/19/19 09:59 Joe Calderon MD Jun 19, 2019 10:32
--- NOTE | 2019-06-19 11:16 | Diagnostic Imaging Report ---
. Indication: Shortness of Technique: One view of the chest Comparison: 06/15/2019 Findings: Bilateral diffuse interstitial and airspace disease, left midlung atelectasis and/or scarring appear unchanged from the previous study. The heart is borderline enlarged. The aorta is tortuous ectatic and calcified. Right subclavian/innominate venous stent again demonstrated Impression: Unchanged bilateral parenchymal disease, over 4 days. Note that chest CT suggests that this mostly represents chronic disease
[2019-06-19 11:38] VITALS: BP 125/53
[2019-06-19] MEDS: Doxycycline Monohydrate 100mg ORAL SCH ×2 (11:41→21:00)
--- NOTE | 2019-06-19 13:13 | NUR ---
DISCHARGE PLANNING: BARRIERS PATIENT NEEDS OUTSIDE TRANSPORTATION SERVICE SET UP FOR HD @ [address] [facility] [address], [place] [address] CALLED INSURANCE TO OBTAIN AUTHORIZATION ALL INSURANCES ARE CLOSED D/T HOLIDAY WILL F/U IN AM
[2019-06-19 15:14] LABS: HEMATOCRIT 26.8 % (42.0-52.0); HEMOGLOBIN 8.4 G/DL (14.2-18.0); MEAN CORPUSCULAR VOLUME 100 FL (80-99); PLATELET COUNT 244 K/UL (150-450); RED BLOOD COUNT 2.69 M/UL (4.70-6.10); RED CELL DISTRIBUTION WIDTH 20.8 % (11.6-14.8); WHITE BLOOD COUNT 16.7 K/UL (4.8-10.8)
[2019-06-19 16:00] VITALS: BP 127/57
--- NOTE | 2019-06-19 17:43 | Nephrology Progress Note ---
Assessment/Plan Problem List: (1) Bronchiectasis (2) Anemia in chronic kidney disease (3) End-stage renal disease (4) Acute exacerbation of CHF (congestive heart failure) (5) Pneumonia Plan stable on dialysis, next 06/20 continue antibiotics, pulm care, epogen Subjective Constitutional: Reports: weakness HEENT: Reports: no symptoms Genitourinary: Reports: no symptoms Neurologic/Psychiatric: Reports: no symptoms Objective Objective Last 24 Hour Vital Signs Date Time Temp Pulse Resp B/P (MAP) Pulse Ox O2 Delivery O2 Flow Rate FiO2 06/19/19 17:19 81 18 99 Nasal Cannula 2.0 28 78 18 99 06/19/19 16:00 98.1 80 20 127/57 (80) 96 06/19/19 11:55 76 18 99 Nasal Cannula 2.0 28 84 18 96 06/19/19 11:44 70 06/19/19 11:38 98.1 76 20 125/53 (77) 96 06/19/19 09:00 Nasal Cannula 2.0 06/19/19 09:00 111/54 06/19/19 09:00 79 111/54 06/19/19 08:00 98.0 79 20 111/54 (73) 99 06/19/19 07:57 98 Nasal Cannula 2.0 28 06/19/19 07:57 74 18 100 Nasal Cannula 2.0 28 78 18 98 06/19/19 07:28 77 06/19/19 04:00 80 06/19/19 04:00 98.1 76 20 108/46 (66) 95 06/19/19 03:31 84 18 100 Nasal Cannula 2.0 28 81 16 98 06/19/19 00:00 98.2 78 20 111/50 (70) 95 06/19/19 00:00 76 06/18/19 23:24 81 18 99 Nasal Cannula 2.0 28 79 16 97 06/18/19 21:00 Nasal Cannula 2.0 06/18/19 20:00 98.4 82 20 105/51 (69) 96 06/18/19 19:14 82 18 98 Nasal Cannula 2.0 28 78 20 94 06/18/19 19:14 94 Nasal Cannula 2.0 28 Intake and Output 06/18/19 06/19/19 19:00 07:00 Intake Total 390 ml 240 ml Balance 390 ml 240 ml Intake Oral 390 ml 240 ml # Voids 2 # Bowel Movements 1 Laboratory Tests 06/19/19 14:55: White Blood Count 16.7H, Red Blood Count 2.69L, Hemoglobin 8.4L, Hematocrit 26.8L, Mean Corpuscular Volume 100H, Mean Corpuscular Hemoglobin 31.2H, Mean Corpuscular Hemoglobin Concent 31.4L, Red Cell Distribution Width 20.8H, Platelet Count 244, Mean Platelet Volume 6.1L, Neutrophils (%) (Auto) , Lymphocytes (%) (Auto) , Monocytes (%) (Auto) , Eosinophils (%) (Auto) , Basophils (%) (Auto) , Differential Total Cells Counted 100, Neutrophils % ( Manual) 96H, Lymphocytes % (Manual) 2L, Monocytes % (Manual) 2, Eosinophils % ( Manual) 0, Basophils % (Manual) 0, Band Neutrophils 0, Platelet Estimate Adequate, Platelet Morphology Normal, Red Blood Cell Morphology , Hypochromasia 1+, Anisocytosis 2+ Height (Feet): 5 Height (Inches): 6.00 Weight (Pounds): 128 General Appearance: no apparent distress, alert EENT: normal ENT inspection Neck: normal alignment Cardiovascular: normal rate, regular rhythm Respiratory/Chest: crackles/rales Abdomen: non tender, soft Extremities: no edema 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
--- NOTE | 2019-06-19 19:30 | NUR ---
HAND-OFF: Report given to THOR Quinn. Pt in stable condition, endorsed plan of care.
--- NOTE | 2019-06-19 19:30 | NUR ---
NURSE NOTES: RECEIVED PATIENT LYING IN BED, AWAKE, ORIENTED X4, AT BEDSIDE, ABLE TO VERBALIZE NEEDS, DENIES PAIN. IV INTACT TO LEFT FOREARM/GAUGE 22, PATENT. NO SIGNS AND SYMPTOMS OF ACUTE CARDIO RESPIRATORY DISTRESS/SHORTNESS, DENIES CHEST PAIN, NO PERIPHERAL EDEMA NOTED. SINUS RHYTHM ON DENTAL SPECIALIST. HD 06/20/19 VIA [facility], AV SHUNT INTACT TO RIGHT UPPER ARM, BRUITT AUDIBLE/THRILL PALPABLE. ABDOMEN SOFT/NON DISTENDED/NON TENDER, NO COMPLAINTS OF GI DISCOMFORT, NO N/V/D. DISCHARGE HOME 06/20, PATIENT AWARE. SIDE RAILS UP X3/BED IN LOWEST POSITION FOR SAFETY, REINFORCED IMPORTANCE OF UTILIZING CALL LIGHT FOR ASSISTANCE, PATIENT FAMILY VERBALIZED UNDERSTANDING, CONTINUE WITH CURRENT PLAN OF CARE. NAD.
[2019-06-19 20:00] VITALS: BP 124/59
--- NOTE | 2019-06-19 20:29 | General Progress Note ---
Assessment/Plan Assessment/Plan: Assessment - Heme (+) stools - recent Endoscopy at [facility] for upper GI bleed - Anemia - h/o lung CA - Resp failure, home O2 - Renal failure - CAD - COPD - CHF Recommendations - Monitor H&H - Get [facility] EGD - PPI - patient not interested in GI w/u at this time due to poor health Subjective Allergies: Coded Allergies: ASPIRIN (Verified Allergy, Unknown, 06/14/19) Uncoded Allergies: paper tape (Allergy, Severe, 11/18/18) SKIN RASH Objective Last 24 Hour Vital Signs Date Time Temp Pulse Resp B/P (MAP) Pulse Ox O2 Delivery O2 Flow Rate FiO2 06/19/19 17:19 81 18 99 Nasal Cannula 2.0 28 78 18 99 06/19/19 16:00 98.1 80 20 127/57 (80) 96 06/19/19 15:31 75 06/19/19 11:55 76 18 99 Nasal Cannula 2.0 28 84 18 96 06/19/19 11:44 70 06/19/19 11:38 98.1 76 20 125/53 (77) 96 06/19/19 09:00 Nasal Cannula 2.0 06/19/19 09:00 111/54 06/19/19 09:00 79 111/54 06/19/19 08:00 98.0 79 20 111/54 (73) 99 06/19/19 07:57 98 Nasal Cannula 2.0 28 06/19/19 07:57 74 18 100 Nasal Cannula 2.0 28 78 18 98 06/19/19 07:28 77 06/19/19 04:00 80 06/19/19 04:00 98.1 76 20 108/46 (66) 95 06/19/19 03:31 84 18 100 Nasal Cannula 2.0 28 81 16 98 06/19/19 00:00 98.2 78 20 111/50 (70) 95 06/19/19 00:00 76 06/18/19 23:24 81 18 99 Nasal Cannula 2.0 28 79 16 97 06/18/19 21:00 Nasal Cannula 2.0 Intake and Output 06/18/19 06/19/19 19:00 07:00 Intake Total 390 ml 240 ml Balance 390 ml 240 ml Intake Oral 390 ml 240 ml # Voids 2 # Bowel Movements 1 Laboratory Tests 2/17/20 14:55: White Blood Count 16.7H, Red Blood Count 2.69L, Hemoglobin 8.4L, Hematocrit 26.8L, Mean Corpuscular Volume 100H, Mean Corpuscular Hemoglobin 31.2H, Mean Corpuscular Hemoglobin Concent 31.4L, Red Cell Distribution Width 20.8H, Platelet Count 244, Mean Platelet Volume 6.1L, Neutrophils (%) (Auto) , Lymphocytes (%) (Auto) , Monocytes (%) (Auto) , Eosinophils (%) (Auto) , Basophils (%) (Auto) , Differential Total Cells Counted 100, Neutrophils % ( Manual) 96H, Lymphocytes % (Manual) 2L, Monocytes % (Manual) 2, Eosinophils % ( Manual) 0, Basophils % (Manual) 0, Band Neutrophils 0, Platelet Estimate Adequate, Platelet Morphology Normal, Red Blood Cell Morphology , Hypochromasia 1+, Anisocytosis 2+ Height (Feet): 5 Height (Inches): 6.00 Weight (Pounds): 128 Darryn Reyes MD Jun 19, 2019 20:29
[2019-06-19] MEDS: Epoetin Alfa-EPBX(ESRD on dialysis)3000 units/ml vial SUBQ SCH (21:00)
[2019-06-19] MEDS ORDERED: Epoetin Alfa-EPBX(ESRD on dialysis)2000 units/ml vial SUBQ SCH (21:00)
--- NOTE | 2019-06-19 21:00 | NUR ---
NURSE NOTES: BLOOD GLUCOSE LEVEL 150MG/DL, PATIENT REFUSED INSULIN.
--- NOTE | 2019-06-19 22:30 | Consultation ---
DATE OF CONSULTATION: 06/19/2019 GASTROENTEROLOGY CONSULTATION CONSULTING PHYSICIAN: Darryn Reyes M.D. CHIEF COMPLAINT: I was asked to see this patient by Dr. Tristen Squires for evaluation of anemia and heme-positive stools. HISTORY OF PRESENT ILLNESS: The patient is a debilitated 74-year-old white man with a history of lung cancer, on oxygen dependence at home, who comes into the hospital due to congestion and shortness of breath. During the course of his evaluation, he was found to be anemic and heme-positive and therefore this consultation was generated. The patient has known significant abdominal symptoms including abdominal pain. No nausea or vomiting or hematochezia. He states about a month ago, he went to [facility]. At that time, he had dark stools and an endoscopy was done. He is unaware of the results. He states he has never had a colonoscopy. He has advanced lung cancer and has received chemotherapy and radiation. The patient is dependent on oxygen and believes that he is too weak to undergo any GI procedures at this time. PAST MEDICAL HISTORY: History of hypertension, coronary artery disease, congestive heart failure, COPD, end-stage renal disease, history of lung cancer status post chemotherapy and radiation. MEDICATIONS: Noted. ALLERGIES: Aspirin and paper tape. FAMILY HISTORY: Noncontributory. SOCIAL HISTORY: The patient is a nonsmoker and he does not drink. He has had a past history of smoking. He lives with his . He is disabled. REVIEW OF SYSTEMS: Otherwise negative. PHYSICAL EXAMINATION: GENERAL: Debilitated, Egyptian man, seen in his room. HEENT: Normocephalic and atraumatic. NECK: Supple. CHEST: Coarse breath sounds. CARDIOVASCULAR: Revealed a regular rate. ABDOMEN: Soft. EXTREMITIES: Revealed no edema. LABORATORY DATA: Noted. The patient is anemic with hemoglobin of 8.4 and stools are heme positive. ASSESSMENT: This patient has heme-positive stools, which potentially may be still due to same upper GI pathology that was investigated at [facility]. However, he states that he has never had a colonoscopy and this would typically be indicated. However, the patient's overall health is very poor with his metastatic lung cancer and respiratory compromise. At this point, he is electing not to undergo any gastrointestinal workup given his overall poor health and I will follow his wishes. In the meantime, he can be observed and his iron panel can be checked and replaced if necessary. Acid blockade would also be useful on long-term basis. Should the patient change his mind, consideration can be made to GI endoscopy although his operative risk will be somewhat higher due to his respiratory compromise. RECOMMENDATIONS: Per above discussion and per orders written in the chart. Thank you for asking me to participate in the care of this patient. Darryn Reyes M.D. DR: JUAN JOB#: [id number] CC:
[2019-06-20] VITALS: BP 136/58
[2019-06-20] MEDS: Albuterol ud Inhalation HHN SCH ×2 (00:57→03:44)
--- NOTE | 2019-06-20 03:31 | Progress Note ---
DATE: 06/19/2019 CARDIOLOGY PROGRESS NOTE SUBJECTIVE: Some congestion. Less shortness of breath. Remains on nasal oxygen. OBJECTIVE: VITAL SIGNS: Blood pressure 127/57, heart rate 80, respiratory rate 20, and afebrile. LUNGS: Coarse breath sounds. Few rales. CARDIAC: Regular rhythm and rate. Normal S1 and S2. A 1/6 systolic apical murmur. ABDOMEN: Soft. EXTREMITIES: Trace edema. LABORATORY AND DIAGNOSTIC DATA: Chest x-ray reveals bilateral parenchymal disease. White count 15.7 and hemoglobin 8.4. IMPRESSION: 1. Healthcare-acquired pneumonia. 2. COPD. 3. Acute on chronic diastolic congestive heart failure. 4. End-stage renal disease. 5. Acute myocardial ischemia, improved. PLAN: 1. Hemodialysis with ultrafiltration for volume management. 2. Nasal oxygen. 3. Oral antimicrobials. 4. Maintain current anti-failure and antihypertensive regimen with hemodialysis and ultrafiltration for volume management. Shamar Reyna M.D. DR: LAMONT JOB#: [id number] CC:
[2019-06-20 04:00] VITALS: BP 118/56
[2019-06-20] MEDS ORDERED: Heparin Sod 1000 units/ml 10ml IV PRN ×2 (06:00→18:45)
[2019-06-20] MEDS: NovoLOG Insulin Flexpen SUBQ SCH ×4 (06:30→21:00)
--- NOTE | 2019-06-20 07:00 | NUR ---
NURSE NOTES: BLOOD GLUCOSE LEVEL VIA GLUCOMETER WITH RESULT 97MG/DL, ASYMPTOMATIC, NO INSULIN COVERAGE-
--- NOTE | 2019-06-20 07:30 | NUR ---
HAND-OFF: Report given to THOR MCMAHON.
[2019-06-20 07:35] LABS: HEMATOCRIT 29.8 % (42.0-52.0); HEMOGLOBIN 9.4 G/DL (14.2-18.0); MEAN CORPUSCULAR VOLUME 99 FL (80-99); PLATELET COUNT 260 K/UL (150-450); RED BLOOD COUNT 3.02 M/UL (4.70-6.10); RED CELL DISTRIBUTION WIDTH 20.9 % (11.6-14.8); WHITE BLOOD COUNT 20.9 K/UL (4.8-10.8)
--- NOTE | 2019-06-20 07:55 | NUR ---
NURSE NOTES: Received report from THOR Herrera. Patient in bed resting, no active s/s cardiac, respiratory distress noticed at this time. Patient AOx4, on 2L NC. IV on LFA 22G SL asymptomatic, patent, intact. is at bedside. Patient will be having dialysis today. Bed in lowest position, side rails upx2, call light within reach. Will continue with the plan of care.
[2019-06-20 08:00] VITALS: BP 140/62
[2019-06-20 08:17] LABS: % IRON SATURATION 31 % (15-50); IRON 44 ug/dL (50-175); TOTAL IRON BINDING CAPACITY 141 ug/dL (250-450)
[2019-06-20 08:24] LABS: ALANINE AMINOTRANSFERASE 17 U/L (12-78); ALBUMIN 2.9 G/DL (3.4-5.0); ALBUMIN/GLOBULIN RATIO 0.6 (1.0-2.7); ALKALINE PHOSPHATASE 65 U/L (46-116); ANION GAP 16 mmol/L (5-15); ASPARTATE AMINO TRANSFERASE 20 U/L (15-37); BILIRUBIN,TOTAL 0.4 MG/DL (0.2-1.0); BLOOD UREA NITROGEN 95 mg/dL (7-18); CALCIUM 8.7 MG/DL (8.5-10.1); CARBON DIOXIDE 24 MMOL/L (21-32); CHLORIDE 101 MMOL/L (98-107); CREATININE 9.3 MG/DL (0.55-1.30); POTASSIUM 4.7 MMOL/L (3.5-5.1); SODIUM 141 MMOL/L (136-145)
[2019-06-20] MEDS: Nephrovite tab (Rena-Vite) ORAL SCH (08:32)
[2019-06-20] MEDS: Renvela 800mg Pkt ORAL SCH ×3 (08:32→17:42)
[2019-06-20] MEDS: Allopurinol 100mg Tab ORAL SCH (08:32)
[2019-06-20] MEDS: Solu-MEDROL 125mg Inj IVP SCH (08:33)
[2019-06-20] MEDS: Lisinopril 20mg tab ORAL SCH (08:33)
[2019-06-20] MEDS: Doxycycline Monohydrate 100mg ORAL SCH ×2 (08:33→21:32)
--- NOTE | 2019-06-20 08:38 | NUR ---
CASE MANAGEMENT:REVIEW 06/19/19 SI: PNA. PLEURAL EFF. ESRD 98.0 79 20 99% ON 2L/NC IS: DOXYCYCLINE PO BID EPOETIN SQ MWF LISINOPRIL PO QD IV SOLUMEDROL Q12 PROCARDIA XL PO QD PROTONIX PO QD PLAVIX PO QD IV ROCEPHIN Q24 DUONEB HHN Q4HRS RTC : TELEMETRY STATUS DCP: FROM HOME PLAN: REESTABLISH SERVICES WITH HD COMPLETE PATIENT NEED TRANSPORTATION TO HD INSURANCE CLOSE D/T HOLIDAY WILL F/U IN AM
--- NOTE | 2019-06-20 08:49 | General Progress Note ---
Assessment/Plan Assessment/Plan: IMPRESSION: 1. Bronchiectasis 2. Pneumonia 3. Pleural effusion. 4. Possible fluid overload. 5. Leukocytosis. worsening 6. pulmonary fibrosis 7. Anemia. 8. End-stage renal disease. 9. History of congestive heart failure. 10. History of severe protein-calorie malnutrition. PLAN ID and cards noted now on po antibiotics oxygen therapy will need outpatient monitoring of CT aware and discussed- epogen needed prior cancer history discussed repeat imaging noted repeat cbc and hold dc dc planning with HH with close outpatient follow up HD as an outpatient impression, plan, and exam edited and reviewed in detail care discussed with RN Subjective Allergies: Coded Allergies: ASPIRIN (Verified Allergy, Unknown, 06/14/19) Uncoded Allergies: paper tape (Allergy, Severe, 11/18/18) SKIN RASH Subjective on oxygen care noted per GI, patient does not want intervention at present anemic but on HD Objective Last 24 Hour Vital Signs Date Time Temp Pulse Resp B/P (MAP) Pulse Ox O2 Delivery O2 Flow Rate FiO2 06/20/19 08:34 83 140/62 06/20/19 08:33 140/62 06/20/19 08:00 98.1 83 20 140/62 (88) 98 06/20/19 04:00 97.7 84 20 118/56 (76) 98 06/20/19 03:44 85 18 100 Nasal Cannula 2.0 28 84 18 98 06/20/19 00:57 85 18 100 Nasal Cannula 2.0 28 83 18 99 06/20/19 00:00 85 06/20/19 00:00 97.7 82 20 136/58 (84) 96 06/19/19 21:00 Nasal Cannula 2.0 06/19/19 20:54 82 18 100 Nasal Cannula 2.0 28 84 18 98 06/19/19 20:54 98 Nasal Cannula 2.0 28 06/19/19 20:00 85 06/19/19 20:00 97.9 78 20 124/59 (80) 97 06/19/19 17:19 81 18 99 Nasal Cannula 2.0 28 78 18 99 06/19/19 16:00 98.1 80 20 127/57 (80) 96 06/19/19 15:31 75 06/19/19 11:55 76 18 99 Nasal Cannula 2.0 28 84 18 96 06/19/19 11:44 70 06/19/19 11:38 98.1 76 20 125/53 (77) 96 06/19/19 09:00 Nasal Cannula 2.0 06/19/19 09:00 111/54 06/19/19 09:00 79 [id number] Intake and Output 06/19/19 06/20/19 19:00 07:00 Intake Total 600 ml 120 ml Output Total 100 ml Balance 600 ml 20 ml Intake Oral 600 ml 120 ml Output Urine Total 100 ml # Voids 4 # Bowel Movements 1 Laboratory Tests 06/19/19 14:55: White Blood Count 16.7H, Red Blood Count 2.69L, Hemoglobin 8.4L, Hematocrit 26.8L, Mean Corpuscular Volume 100H, Mean Corpuscular Hemoglobin 31.2H, Mean Corpuscular Hemoglobin Concent 31.4L, Red Cell Distribution Width 20.8H, Platelet Count 244, Mean Platelet Volume 6.1L, Neutrophils (%) (Auto) , Lymphocytes (%) (Auto) , Monocytes (%) (Auto) , Eosinophils (%) (Auto) , Basophils (%) (Auto) , Differential Total Cells Counted 100, Neutrophils % ( Manual) 96H, Lymphocytes % (Manual) 2L, Monocytes % (Manual) 2, Eosinophils % ( Manual) 0, Basophils % (Manual) 0, Band Neutrophils 0, Platelet Estimate Adequate, Platelet Morphology Normal, Red Blood Cell Morphology , Hypochromasia 1+, Anisocytosis 2+ 06/20/19 06:49: White Blood Count 20.9H, Red Blood Count 3.02L, Hemoglobin 9.4L, Hematocrit 29.8L, Mean Corpuscular Volume 99, Mean Corpuscular Hemoglobin 31.3H, Mean Corpuscular Hemoglobin Concent 31.7L, Red Cell Distribution Width 20.9H, Platelet Count 260, Mean Platelet Volume 5.8L, Neutrophils (%) (Auto) , Lymphocytes (%) (Auto) , Monocytes (%) (Auto) , Eosinophils (%) (Auto) , Basophils (%) (Auto) , Neutrophils % (Manual) [Pending], Lymphocytes % (Manual) [Pending], Platelet Estimate [Pending], Platelet Morphology [Pending], Sodium Level 141, Potassium Level 4.7, Chloride Level 101, Carbon Dioxide Level 24, Anion Gap 16H, Blood Urea Nitrogen 95H, Creatinine 9.3H, Estimat Glomerular Filtration Rate 5.6, Glucose Level 100, Calcium Level 8.7, Iron Level 44L, Total Iron Binding Capacity 141L, Percent Iron Saturation 31, Unsaturated Iron Binding 97L, Total Bilirubin 0.4, Aspartate Amino Transf (AST/SGOT) 20, Alanine Aminotransferase (ALT/SGPT) 17, Alkaline Phosphatase 65, Pro-B-Type Natriuretic Peptide 5060H, Total Protein 7.5, Albumin 2.9L, Globulin 4.6, Albumin/Globulin Ratio 0.6L Height (Feet): 5 Height (Inches): 6.00 Weight (Pounds): 105 Objective GENERAL: A well-developed male, but appears to be overall chronically ill. NECK: Supple. EXTREMITIES: Grossly intact. LUNGS: With moderate breath sounds, reduced at both bases with some associated crackles. CARDIAC: S1, S2. Regular rate and rhythm. Soft systolic murmur left sternal border. ABDOMEN: Soft, nontender, nondistended. EXTREMITIES: No cyanosis or clubbing. There is no significant edema. reviewed and edited Tristen Squires MD Jun 20, 2019 08:49
--- NOTE | 2019-06-20 10:48 | Infectious Diseases Prog Note ---
Assessment/Plan Assessment/Plan antibiotics : doxycycline A 1. pneumonia 2. bronchiectasis 3. emphysema 4. pulmonary fibrosis 5. leucocytosis increased likely secondary to steroids 6. renal failure 7. lung cancer 8. hypertension P 1. continue po doxycycline 1 more day 2. will follow up cultures Subjective Constitutional: Denies: fever, chills Respiratory: Reports: productive cough - decreased; Denies: shortness of breath Gastrointestinal/Abdominal: Denies: nausea, vomiting, diarrhea Musculoskeletal: Denies: pain Allergies: Coded Allergies: ASPIRIN (Verified Allergy, Unknown, 06/14/19) Uncoded Allergies: paper tape (Allergy, Severe, 11/18/18) SKIN RASH Objective Vital Signs Last 24 Hour Vital Signs Date Time Temp Pulse Resp B/P (MAP) Pulse Ox O2 Delivery O2 Flow Rate FiO2 06/20/19 08:34 83 140/62 06/20/19 08:33 140/62 06/20/19 08:10 98 Nasal Cannula 2.0 28 06/20/19 08:00 98.1 83 20 140/62 (88) 98 06/20/19 04:00 97.7 84 20 118/56 (76) 98 06/20/19 03:44 85 18 100 Nasal Cannula 2.0 28 84 18 98 06/20/19 00:57 85 18 100 Nasal Cannula 2.0 28 83 18 99 06/20/19 00:00 85 06/20/19 00:00 97.7 82 20 136/58 (84) 96 06/19/19 21:00 Nasal Cannula 2.0 06/19/19 20:54 82 18 100 Nasal Cannula 2.0 28 84 18 98 06/19/19 20:54 98 Nasal Cannula 2.0 28 06/19/19 20:00 85 06/19/19 20:00 97.9 78 20 124/59 (80) 97 06/19/19 17:19 81 18 99 Nasal Cannula 2.0 28 78 18 99 06/19/19 16:00 98.1 80 20 127/57 (80) 96 06/19/19 15:31 75 06/19/19 11:55 76 18 99 Nasal Cannula 2.0 28 84 18 96 06/19/19 11:44 70 06/19/19 11:38 98.1 76 20 125/53 (77) 96 Height (Feet): 5 Height (Inches): 6.00 Weight (Pounds): 105 Respiratory/Chest: lungs clear Cardiovascular: normal rate, regular rhythm, no gallop/murmur Abdomen: soft, non tender Extremities: no edema Laboratory Tests Test 06/19/19 14:55 06/20/19 06:49 White Blood Count 16.7 K/UL (4.8-10.8) H 20.9 K/UL (4.8-10.8) H Red Blood Count 2.69 M/UL (4.70-6.10) L 3.02 M/UL (4.70-6.10) L Hemoglobin 8.4 G/DL (14.2-18.0) L 9.4 G/DL (14.2-18.0) L Hematocrit 26.8 % (42.0-52.0) L 29.8 % (42.0-52.0) L Mean Corpuscular Volume 100 FL (80-99) H 99 FL (80-99) Mean Corpuscular Hemoglobin 31.2 PG (27.0-31.0) H 31.3 PG (27.0-31.0) H Mean Corpuscular Hemoglobin Concent 31.4 G/DL (32.0-36.0) L 31.7 G/DL (32.0-36.0) L Red Cell Distribution Width 20.8 % (11.6-14.8) H 20.9 % (11.6-14.8) H Platelet Count 244 K/UL (150-450) 260 K/UL (150-450) Mean Platelet Volume 6.1 FL (6.5-10.1) L 5.8 FL (6.5-10.1) L Neutrophils (%) (Auto) % (45.0-75.0) % (45.0-75.0) Lymphocytes (%) (Auto) % (20.0-45.0) % (20.0-45.0) Monocytes (%) (Auto) % (1.0-10.0) % (1.0-10.0) Eosinophils (%) (Auto) % (0.0-3.0) % (0.0-3.0) Basophils (%) (Auto) % (0.0-2.0) % (0.0-2.0) Differential Total Cells Counted 100 100 Neutrophils % (Manual) 96 % (45-75) H 84 % (45-75) H Lymphocytes % (Manual) 2 % (20-45) L 6 % (20-45) L Monocytes % (Manual) 2 % (1-10) 10 % (1-10) Eosinophils % (Manual) 0 % (0-3) 0 % (0-3) Basophils % (Manual) 0 % (0-2) 0 % (0-2) Band Neutrophils 0 % (0-8) 0 % (0-8) Platelet Estimate Adequate Adequate Platelet Morphology Normal Normal Red Blood Cell Morphology Hypochromasia 1+ Anisocytosis 2+ Sodium Level 141 MMOL/L (136-145) Potassium Level 4.7 MMOL/L (3.5-5.1) Chloride Level 101 MMOL/L (98-107) Carbon Dioxide Level 24 MMOL/L (21-32) Anion Gap 16 mmol/L (5-15) H Blood Urea Nitrogen 95 mg/dL (7-18) H Creatinine 9.3 MG/DL (0.55-1.30) H Estimat Glomerular Filtration Rate 5.6 mL/min (>60) Glucose Level 100 MG/DL (74-106) Calcium Level 8.7 MG/DL (8.5-10.1) Iron Level 44 ug/dL (50-175) L Total Iron Binding Capacity 141 ug/dL (250-450) L Percent Iron Saturation 31 % (15-50) Unsaturated Iron Binding 97 ug/dL (112-346) L Total Bilirubin 0.4 MG/DL (0.2-1.0) Aspartate Amino Transf (AST/SGOT) 20 U/L (15-37) Alanine Aminotransferase (ALT/SGPT) 17 U/L (12-78) Alkaline Phosphatase 65 U/L (46-116) Pro-B-Type Natriuretic Peptide 5060 pg/mL (0-125) H Total Protein 7.5 G/DL (6.4-8.2) Albumin 2.9 G/DL (3.4-5.0) L Globulin 4.6 g/dL Albumin/Globulin Ratio 0.6 (1.0-2.7) L Current Medications Medications (Trade) Dose Ordered Sig/Briseyda Route PRN Reason Start Time Stop Time Status Last Admin Dose Admin Acetaminophen (Tylenol) 650 mg Q4H PRN ORAL Mild Pain/Temp > 100.5 06/15/19 06:45 07/15/19 06:44 Al Hydroxide/Mg Hydroxide (Mylanta) 30 ml Q4H PRN ORAL GERD 06/15/19 06:45 07/15/19 06:44 Allopurinol (Zyloprim) 100 mg DAILY ORAL 06/15/19 09:00 07/15/19 08:59 06/20/19 08:32 Clopidogrel Bisulfate (Plavix) 75 mg DAILY ORAL 06/15/19 09:00 07/15/19 08:59 06/20/19 08:33 Dextrose (Dextrose 50%) 25 ml Q30M PRN IV Hypoglycemia 06/16/19 13:30 07/16/19 13:29 Dextrose (Dextrose 50%) 50 ml Q30M PRN IV Hypoglycemia 06/16/19 13:30 07/16/19 13:29 Doxycycline Monohydrate (Doxycycline Monohydrate) 100 mg EVERY 12 HOURS ORAL 06/19/19 11:00 06/26/19 10:59 06/20/19 08:33 Epoetin Jayy (Epoetin Jayy(ESRD on dialysis)) 3,000 unit WED-WED-WED SUBQ 06/16/19 21:00 07/16/19 20:59 06/19/19 21:00 Epoetin Jayy (Epoetin Jayy(ESRD on dialysis)) 4,000 unit WED-WED-WED SUBQ 06/19/19 21:00 07/19/19 20:59 06/19/19 21:00 Heparin Sodium (Porcine) (Heparin Sod 1000 units/ml 10ml) 2,000 unit ONCE PRN IV HD 06/20/19 06:00 06/20/19 23:59 Insulin Aspart (NovoLOG) BEFORE MEALS AND HS SUBQ 06/16/19 16:30 07/16/19 16:29 Lisinopril (PriniviL) 20 mg DAILY ORAL 06/16/19 09:00 07/16/19 08:59 06/18/19 08:56 Nifedipine (Procardia XL) 60 mg DAILY ORAL 06/15/19 09:00 07/15/19 08:59 06/18/19 08:57 Pantoprazole (Protonix) 40 mg DAILY ORAL 06/15/19 09:00 07/15/19 08:59 06/20/19 08:33 Sevelamer Carbonate (Renvela) 800 mg THREE TIMES A DAY ORAL 06/15/19 09:00 07/15/19 08:59 06/20/19 08:32 Sodium Chloride 1,000 ml @ 500 mls/hr Q2H PRN IVLG sbp<90 during hd 06/20/19 06:00 06/20/19 23:59 Vitamin B Complex/ Vit C/Folic Acid (Nephrovite) 1 tab DAILY ORAL 06/15/19 09:00 07/15/19 08:59 06/20/19 08:32 Joe Calderon MD Jun 20, 2019 10:48
[2019-06-20 12:00] VITALS: BP 143/55
--- NOTE | 2019-06-20 13:12 | Nephrology Progress Note ---
Assessment/Plan Problem List: (1) Bronchiectasis (2) Anemia in chronic kidney disease (3) End-stage renal disease (4) Acute exacerbation of CHF (congestive heart failure) (5) Pneumonia Plan stable on dialysis on 06/20 continue antibiotics, pulm care, epogen Subjective Constitutional: Reports: weakness HEENT: Reports: no symptoms Genitourinary: Reports: no symptoms Neurologic/Psychiatric: Reports: no symptoms Objective Objective Last 24 Hour Vital Signs Date Time Temp Pulse Resp B/P (MAP) Pulse Ox O2 Delivery O2 Flow Rate FiO2 06/20/19 09:00 Nasal Cannula 2.0 06/20/19 08:34 83 140/62 06/20/19 08:33 140/62 06/20/19 08:10 98 Nasal Cannula 2.0 28 06/20/19 08:00 98.1 83 20 140/62 (88) 98 06/20/19 04:00 97.7 84 20 118/56 (76) 98 06/20/19 03:44 85 18 100 Nasal Cannula 2.0 28 84 18 98 06/20/19 00:57 85 18 100 Nasal Cannula 2.0 28 83 18 99 06/20/19 00:00 85 06/20/19 00:00 97.7 82 20 136/58 (84) 96 06/19/19 21:00 Nasal Cannula 2.0 06/19/19 20:54 82 18 100 Nasal Cannula 2.0 28 84 18 98 06/19/19 20:54 98 Nasal Cannula 2.0 28 06/19/19 20:00 85 06/19/19 20:00 97.9 78 20 124/59 (80) 97 06/19/19 17:19 81 18 99 Nasal Cannula 2.0 28 78 18 99 06/19/19 16:00 98.1 80 20 127/57 (80) 96 06/19/19 15:31 75 Intake and Output 06/19/19 06/20/19 19:00 07:00 Intake Total 600 ml 120 ml Output Total 100 ml Balance 600 ml 20 ml Intake Oral 600 ml 120 ml Output Urine Total 100 ml # Voids 4 # Bowel Movements 1 Laboratory Tests 06/19/19 14:55: White Blood Count 16.7H, Red Blood Count 2.69L, Hemoglobin 8.4L, Hematocrit 26.8L, Mean Corpuscular Volume 100H, Mean Corpuscular Hemoglobin 31.2H, Mean Corpuscular Hemoglobin Concent 31.4L, Red Cell Distribution Width 20.8H, Platelet Count 244, Mean Platelet Volume 6.1L, Neutrophils (%) (Auto) , Lymphocytes (%) (Auto) , Monocytes (%) (Auto) , Eosinophils (%) (Auto) , Basophils (%) (Auto) , Differential Total Cells Counted 100, Neutrophils % ( Manual) 96H, Lymphocytes % (Manual) 2L, Monocytes % (Manual) 2, Eosinophils % ( Manual) 0, Basophils % (Manual) 0, Band Neutrophils 0, Platelet Estimate Adequate, Platelet Morphology Normal, Red Blood Cell Morphology , Hypochromasia 1+, Anisocytosis 2+ 06/20/19 06:49: White Blood Count 20.9H, Red Blood Count 3.02L, Hemoglobin 9.4L, Hematocrit 29.8L, Mean Corpuscular Volume 99, Mean Corpuscular Hemoglobin 31.3H, Mean Corpuscular Hemoglobin Concent 31.7L, Red Cell Distribution Width 20.9H, Platelet Count 260, Mean Platelet Volume 5.8L, Neutrophils (%) (Auto) , Lymphocytes (%) (Auto) , Monocytes (%) (Auto) , Eosinophils (%) (Auto) , Basophils (%) (Auto) , Differential Total Cells Counted 100, Neutrophils % ( Manual) 84H, Lymphocytes % (Manual) 6L, Monocytes % (Manual) 10, Eosinophils % ( Manual) 0, Basophils % (Manual) 0, Band Neutrophils 0, Platelet Estimate Adequate, Platelet Morphology Normal, Sodium Level 141, Potassium Level 4.7, Chloride Level 101, Carbon Dioxide Level 24, Anion Gap 16H, Blood Urea Nitrogen 95H, Creatinine 9.3H, Estimat Glomerular Filtration Rate 5.6, Glucose Level 100 , Calcium Level 8.7, Iron Level 44L, Total Iron Binding Capacity 141L, Percent Iron Saturation 31, Unsaturated Iron Binding 97L, Total Bilirubin 0.4, Aspartate Amino Transf (AST/SGOT) 20, Alanine Aminotransferase (ALT/SGPT) 17, Alkaline Phosphatase 65, Pro-B-Type Natriuretic Peptide 5060H, Total Protein 7.5 , Albumin 2.9L, Globulin 4.6, Albumin/Globulin Ratio 0.6L Height (Feet): 5 Height (Inches): 6.00 Weight (Pounds): 105 General Appearance: no apparent distress, alert EENT: normal ENT inspection Neck: normal alignment Cardiovascular: regular rhythm Respiratory/Chest: crackles/rales Abdomen: soft, no organomegaly Extremities: no edema Neurologic: communications project lead II-XII grossly normal Davis Diaz MD Jun 20, 2019 13:12
--- NOTE | 2019-06-20 13:52 | NUR ---
TRANSPORTATION SETUP: TRANSPORTATION TO AND FROM WILL BE PROVIDED BY: [facility] TRANSPORTATION RESERVATION T: [phone] IS SCHEDULED FOR Wednesday AND WEDNESDAY @1PM [address] [facility] [id number] PICKUP TIME WILL BE @1215 PM DEPARTURE TIME WILL BE @ 1630PM AUTHORIZATION FOR THIS WEEKS TRIPS ARE THE FOLLOWING: WEDNESDAY: [id number] WEDNESDAY: 83231 WEDNESDAY: 17919
[2019-06-20 16:00] VITALS: BP 128/88
--- NOTE | 2019-06-20 18:36 | NUR ---
NURSE NOTES: Patient transferred to 3rd floor room 302-1. Report and patient endorsed to Mehreen MCRAE. Belonging list acknowledged and signed by both nurses. IV site is intact and patent. Patient has no quality assurance monitor final on prior to transfer. Patient is on continuous 2L oxygen. All transfer protocols carried out. Endorsed plan of care.
--- NOTE | 2019-06-20 19:32 | NUR ---
NURSE NOTES: Pt received from tele. Care taken over. is at bedside. Attempting to television with call light, informed that the call lights television function does not work. " Nothing works here" Pt does not appear happy about transfer. Informed this floor is lower level of care. Endorsed to oncoming nurse possible discharge and information about dialysis transportation
--- NOTE | 2019-06-20 19:36 | NUR ---
HAND-OFF: Report given to Lola.
--- NOTE | 2019-06-20 19:40 | NUR ---
NURSE NOTES: Received report from THOR Davis. Patient A&Ox4, in bed. On 2L NC, no signs of distress or labored breathing. IV intact, patent, and saline locked. Bed in lowest position with call light in reach. Will continue with plan of care. at bedside.
[2019-06-20 20:00] VITALS: BP 135/55
--- NOTE | 2019-06-20 22:31 | General Progress Note ---
Assessment/Plan Assessment/Plan: Assessment - Heme (+) stools - recent Endoscopy at [facility] for upper GI bleed - declines colonoscopy at this time due to poor health - Anemia - h/o lung CA - Resp failure, home O2 - Renal failure - CAD - COPD - CHF Recommendations - Monitor H&H - optimize pulmonary status - PPI - patient to f/u with outpatient PMD for possible colonoscopy at a later date Subjective Allergies: Coded Allergies: ASPIRIN (Verified Allergy, Unknown, 06/14/19) Uncoded Allergies: paper tape (Allergy, Severe, 11/18/18) SKIN RASH Subjective Above noted d/w PMD d/w patient along with at bedside of pt patient weak and symptomatic from his respiratory issues not interested in colonoscopy at this time and EGD already done about 2-3 weeks ago at [place] instructed to see PMD as outpatient in 1 month, once improved, to be re- evaluated for colonoscopy Objective Last 24 Hour Vital Signs Date Time Temp Pulse Resp B/P (MAP) Pulse Ox O2 Delivery O2 Flow Rate FiO2 06/20/19 20:00 98.3 90 17 135/55 (81) 95 06/20/19 16:00 97.6 61 20 128/88 (101) 97 06/20/19 12:00 97.8 79 20 143/55 (84) 96 06/20/19 09:00 Nasal Cannula 2.0 06/20/19 08:34 83 140/62 06/20/19 08:33 140/62 06/20/19 08:10 98 Nasal Cannula 2.0 28 06/20/19 08:00 98.1 83 20 140/62 (88) 98 06/20/19 04:00 97.7 84 20 118/56 (76) 98 06/20/19 03:44 85 18 100 Nasal Cannula 2.0 28 84 18 98 06/20/19 00:57 85 18 100 Nasal Cannula 2.0 28 83 18 99 06/20/19 00:00 85 06/20/19 00:00 97.7 82 20 136/58 (84) 96 Intake and Output 06/19/19 06/20/19 19:00 07:00 Intake Total 600 ml 120 ml Output Total 100 ml Balance 600 ml 20 ml Intake Oral 600 ml 120 ml Output Urine Total 100 ml # Voids 4 # Bowel Movements 1 Laboratory Tests 06/20/19 06:49: White Blood Count 20.9H, Red Blood Count 3.02L, Hemoglobin 9.4L, Hematocrit 29.8L, Mean Corpuscular Volume 99, Mean Corpuscular Hemoglobin 31.3H, Mean Corpuscular Hemoglobin Concent 31.7L, Red Cell Distribution Width 20.9H, Platelet Count 260, Mean Platelet Volume 5.8L, Neutrophils (%) (Auto) , Lymphocytes (%) (Auto) , Monocytes (%) (Auto) , Eosinophils (%) (Auto) , Basophils (%) (Auto) , Differential Total Cells Counted 100, Neutrophils % ( Manual) 84H, Lymphocytes % (Manual) 6L, Monocytes % (Manual) 10, Eosinophils % ( Manual) 0, Basophils % (Manual) 0, Band Neutrophils 0, Platelet Estimate Adequate, Platelet Morphology Normal, Sodium Level 141, Potassium Level 4.7, Chloride Level 101, Carbon Dioxide Level 24, Anion Gap 16H, Blood Urea Nitrogen 95H, Creatinine 9.3H, Estimat Glomerular Filtration Rate 5.6, Glucose Level 100 , Calcium Level 8.7, Iron Level 44L, Total Iron Binding Capacity 141L, Percent Iron Saturation 31, Unsaturated Iron Binding 97L, Total Bilirubin 0.4, Aspartate Amino Transf (AST/SGOT) 20, Alanine Aminotransferase (ALT/SGPT) 17, Alkaline Phosphatase 65, Pro-B-Type Natriuretic Peptide 5060H, Total Protein 7.5 , Albumin 2.9L, Globulin 4.6, Albumin/Globulin Ratio 0.6L Height (Feet): 5 Height (Inches): 6.00 Weight (Pounds): 105 Objective thin WM, NAD NCAT, (+) O2 supple chest Coarse Ronchi CV RRR abd soft ND, NT no edema Darryn Reyes MD Jun 20, 2019 22:31
[2019-06-21] VITALS: BP 125/51
--- NOTE | 2019-06-21 03:30 | Progress Note ---
DATE: 06/20/2019 CARDIOLOGY PROGRESS NOTE SUBJECTIVE: The patient has less congestion and shortness of breath. OBJECTIVE: VITAL SIGNS: Blood pressure 140/62, pulse 82, respirations 20, afebrile. LUNGS: Scattered rhonchi. HEART: Regular rhythm and rate. Normal S1, S2. ABDOMEN: Soft. EXTREMITIES: Trace edema. LABORATORY DATA: White count 20.9, hemoglobin 9.4. Potassium 4.7, BUN 95, creatinine 9.3. Pro-natriuretic peptide 5000. IMPRESSION: 1. Pneumonia. 2. Bronchiectasis. 3. COPD with pulmonary fibrosis. 4. Leukocytosis on steroids. 5. Hypertensive heart disease. 6. History of lung cancer. 7. Acute myocardial ischemia, recovered. 8. Acute on chronic diastolic congestive heart failure, clinically compensated. 9. End-stage renal disease, on hemodialysis. PLAN: 1. Antimicrobials. 2. Respiratory hygiene. 3. Steroid taper. 4. Hemodialysis with ultrafiltration for volume management. 5. Epogen and vitamin supplements. 6. Maintain current antihypertensive regimen. Shamar Reyna M.D. DR: Lc JOB#: [id number] CC:
[2019-06-21 04:00] VITALS: BP 128/54
[2019-06-21] MEDS: NovoLOG Insulin Flexpen SUBQ SCH (06:23)
[2019-06-21 07:13] LABS: BASOPHILS % (AUTO) 0.5 % (0.0-2.0); EOSINOPHILS % (AUTO) 0.1 % (0.0-3.0); HEMATOCRIT 30.1 % (42.0-52.0); HEMOGLOBIN 9.3 G/DL (14.2-18.0); LYMPHOCYTES % (AUTO) 9.7 % (20.0-45.0); MEAN CORPUSCULAR VOLUME 100 FL (80-99); MONOCYTES % (AUTO) 9.2 % (1.0-10.0); NEUTROPHILS % (AUTO) 80.5 % (45.0-75.0); PLATELET COUNT 211 K/UL (150-450); RED CELL DISTRIBUTION WIDTH 21.3 % (11.6-14.8)
--- NOTE | 2019-06-21 07:16 | NUR ---
HAND-OFF: Report given to THOR Weinstein.
--- NOTE | 2019-06-21 07:27 | NUR ---
NURSE NOTES: awake/alert. no c/o pain. with sob on exertion. 02 2ln/c. ru a av shunt wit good bruitt. in no acute distress.
[2019-06-21 08:00] VITALS: BP 131/44
[2019-06-21 09:00] VITALS: BP 131/44
[2019-06-21] MEDS: Doxycycline Monohydrate 100mg ORAL SCH (09:00)
[2019-06-21] MEDS ORDERED: Renvela 800mg Pkt ORAL SCH (09:00)
[2019-06-21] MEDS ORDERED: Allopurinol 100mg Tab ORAL SCH (09:00)
[2019-06-21] MEDS ORDERED: Nephrovite tab (Rena-Vite) ORAL SCH (09:00)
[2019-06-21] MEDS ORDERED: Lisinopril 20mg tab ORAL SCH (09:00)
--- NOTE | 2019-06-21 09:20 | General Progress Note ---
Assessment/Plan Assessment/Plan: IMPRESSION: 1. Bronchiectasis 2. Pneumonia 3. Pleural effusion. 4. Possible fluid overload. 5. Leukocytosis. worsening 6. pulmonary fibrosis 7. Anemia. 8. End-stage renal disease. 9. History of congestive heart failure. 10. History of severe protein-calorie malnutrition. PLAN ID and cards noted off antibiotics oxygen therapy will need outpatient monitoring of CT- aware aware and discussed- epogen needed prior cancer history discussed dc planning with HH with close outpatient follow up HD as an outpatient impression, plan, and exam edited and reviewed in detail care discussed with RN Subjective Allergies: Coded Allergies: ASPIRIN (Verified Allergy, Unknown, 06/14/19) Uncoded Allergies: paper tape (Allergy, Severe, 11/18/18) SKIN RASH Subjective on oxygen care noted per GI, patient does not want intervention at present anemic but on HD wbc back to near baseline nontoxic and cleared by ID Objective Last 24 Hour Vital Signs Date Time Temp Pulse Resp B/P (MAP) Pulse Ox O2 Delivery O2 Flow Rate FiO2 06/21/19 09:00 78 131/44 06/21/19 09:00 131/44 06/21/19 08:00 98.7 78 20 131/44 (73) 100 06/21/19 04:00 98.2 86 17 128/54 (78) 96 06/21/19 00:00 98.4 82 18 125/51 (75) 96 06/20/19 21:00 Nasal Cannula 2.0 06/20/19 20:00 98.3 90 17 135/55 (81) 95 06/20/19 16:00 97.6 61 20 128/88 (101) 97 06/20/19 12:00 97.8 79 20 143/55 (84) 96 Intake and Output 06/20/19 06/21/19 19:00 07:00 Intake Total 2000 ml 240 ml Balance 2000 ml 240 ml Intake Oral 240 ml Hemodialysis 2000 ml # Voids 1 # Bowel Movements 1 Laboratory Tests 06/21/19 04:50: White Blood Count 15.0H, Red Blood Count 3.00L, Hemoglobin 9.3L, Hematocrit 30.1L, Mean Corpuscular Volume 100H, Mean Corpuscular Hemoglobin 31.1H, Mean Corpuscular Hemoglobin Concent 31.0L, Red Cell Distribution Width 21.3H, Platelet Count 211, Mean Platelet Volume 5.8L, Neutrophils (%) (Auto) 80.5H, Lymphocytes (%) (Auto) 9.7L, Monocytes (%) (Auto) 9.2, Eosinophils (%) (Auto) 0.1, Basophils (%) (Auto) 0.5 Height (Feet): 5 Height (Inches): 6.00 Weight (Pounds): 108 Objective GENERAL: A well-developed male, but appears to be overall chronically ill. NECK: Supple. EXTREMITIES: Grossly intact. LUNGS: reduced breath sounds, reduced at both bases with some associated crackles. CARDIAC: S1, S2. Regular rate and rhythm. Soft systolic murmur left sternal border. ABDOMEN: Soft, nontender, nondistended. EXTREMITIES: No cyanosis or clubbing. There is no significant edema. reviewed and edited Tristen Squires MD Jun 21, 2019 09:20
--- NOTE | 2019-06-21 10:51 | Infectious Diseases Prog Note ---
Assessment/Plan Assessment/Plan antibiotics : doxycycline A 1. pneumonia s/p rx 2. bronchiectasis 3. emphysema 4. pulmonary fibrosis 5. leucocytosis increased likely secondary to steroids 6. renal failure 7. lung cancer 8. hypertension P 1. d/c po doxycycline 2. observe off antibiotics Subjective Constitutional: Denies: fever, chills Respiratory: Reports: shortness of breath - on exertion, dry cough - decreased Gastrointestinal/Abdominal: Denies: nausea, vomiting, diarrhea Musculoskeletal: Denies: pain Allergies: Coded Allergies: ASPIRIN (Verified Allergy, Unknown, 06/14/19) Uncoded Allergies: paper tape (Allergy, Severe, 11/18/18) SKIN RASH Objective Vital Signs Last 24 Hour Vital Signs Date Time Temp Pulse Resp B/P (MAP) Pulse Ox O2 Delivery O2 Flow Rate FiO2 06/21/19 09:00 Nasal Cannula 2.0 06/21/19 09:00 78 131/44 06/21/19 09:00 131/44 06/21/19 08:00 98.7 78 20 131/44 (73) 100 06/21/19 04:00 98.2 86 17 128/54 (78) 96 06/21/19 00:00 98.4 82 18 125/51 (75) 96 06/20/19 21:00 Nasal Cannula 2.0 06/20/19 20:00 98.3 90 17 135/55 (81) 95 06/20/19 16:00 97.6 61 20 128/88 (101) 97 06/20/19 12:00 97.8 79 20 143/55 (84) 96 Height (Feet): 5 Height (Inches): 6.00 Weight (Pounds): 106 Laboratory Tests Test 06/21/19 04:50 White Blood Count 15.0 K/UL (4.8-10.8) H Red Blood Count 3.00 M/UL (4.70-6.10) L Hemoglobin 9.3 G/DL (14.2-18.0) L Hematocrit 30.1 % (42.0-52.0) L Mean Corpuscular Volume 100 FL (80-99) H Mean Corpuscular Hemoglobin 31.1 PG (27.0-31.0) H Mean Corpuscular Hemoglobin Concent 31.0 G/DL (32.0-36.0) L Red Cell Distribution Width 21.3 % (11.6-14.8) H Platelet Count 211 K/UL (150-450) Mean Platelet Volume 5.8 FL (6.5-10.1) L Neutrophils (%) (Auto) 80.5 % (45.0-75.0) H Lymphocytes (%) (Auto) 9.7 % (20.0-45.0) L Monocytes (%) (Auto) 9.2 % (1.0-10.0) Eosinophils (%) (Auto) 0.1 % (0.0-3.0) Basophils (%) (Auto) 0.5 % (0.0-2.0) Current Medications Medications (Trade) Dose Ordered Sig/Briseyda Route PRN Reason Start Time Stop Time Status Last Admin Dose Admin Acetaminophen (Tylenol) 650 mg Q4H PRN ORAL Mild Pain/Temp > 100.5 06/20/19 18:45 07/15/19 06:44 Al Hydroxide/Mg Hydroxide (Mylanta) 30 ml Q4H PRN ORAL GERD 06/20/19 18:45 07/15/19 06:44 Allopurinol (Zyloprim) 100 mg DAILY ORAL 06/21/19 09:00 07/15/19 08:59 06/21/19 08:59 Clopidogrel Bisulfate (Plavix) 75 mg DAILY ORAL 06/21/19 09:00 07/15/19 08:59 06/21/19 08:59 Dextrose (Dextrose 50%) 25 ml Q30M PRN IV Hypoglycemia 06/20/19 19:00 07/16/19 13:29 Dextrose (Dextrose 50%) 50 ml Q30M PRN IV Hypoglycemia 06/20/19 19:00 07/16/19 13:29 Doxycycline Monohydrate (Doxycycline Monohydrate) 100 mg EVERY 12 HOURS ORAL 06/20/19 21:00 06/26/19 10:59 06/21/19 09:00 Epoetin Jayy (Epoetin Jayy(ESRD on dialysis)) 3,000 unit -WED SUBQ 06/21/19 21:00 07/16/19 20:59 Epoetin Jayy (Epoetin Jayy(ESRD on dialysis)) 4,000 unit SUBQ 06/21/19 21:00 07/19/19 20:59 Insulin Aspart (NovoLOG) BEFORE MEALS AND HS SUBQ 06/20/19 21:00 07/16/19 16:29 Lisinopril (PriniviL) 20 mg DAILY ORAL 06/21/19 09:00 07/16/19 08:59 Nifedipine (Procardia XL) 60 mg DAILY ORAL 06/21/19 09:00 07/15/19 08:59 Pantoprazole (Protonix) 40 mg DAILY ORAL 06/21/19 09:00 07/15/19 08:59 06/21/19 09:00 Sevelamer Carbonate (Renvela) 800 mg THREE TIMES A DAY ORAL 06/21/19 09:00 07/15/19 08:59 06/21/19 09:00 Vitamin B Complex/ Vit C/Folic Acid (Nephrovite) 1 tab DAILY ORAL 06/21/19 09:00 07/15/19 08:59 06/21/19 08:59 Joe Calderon MD Jun 21, 2019 10:51
[2019-06-21] MEDS ORDERED: Tubing IV Secondary IV ONE (11:04)
[2019-06-21] MEDS ORDERED: NS 275ml ONE (11:04)
--- NOTE | 2019-06-21 11:05 | NUR ---
NURSE NOTES: DISCHARGED HOME PER WHEELCHAIR [facility]PD BY IN STABLE CONDITION. DC INSTRUCTIONS AND RX GIVEN.
--- NOTE | 2019-06-21 13:38 | NUR ---
DISCHARGE PLANNING: PATIENT WILL REESTABLISH SERVICES FROM [facility] T: [phone] D[facility] FROM [facility] STATED PATIENT IS ACCEPTED BACK FOR SERVICES AND WILL CALL PATIENT
[2019-06-21] MEDS ORDERED: Epoetin Alfa-EPBX(ESRD on dialysis)2000 units/ml vial SUBQ SCH (21:00)
[2019-06-21] MEDS ORDERED: Epoetin Alfa-EPBX(ESRD on dialysis)3000 units/ml vial SUBQ SCH (21:00)
--- NOTE | 2019-06-22 03:00 | Progress Note ---
DATE: 06/21/2019 CARDIOLOGY PROGRESS NOTE SUBJECTIVE: The patient feels better. Less congested and no shortness of breath. OBJECTIVE: VITAL SIGNS: Blood pressure 131/44, pulse 78, and respirations 20. LUNGS: ____. Few rhonchi. Good breath sounds. CARDIAC: Regular rhythm and rate. Normal S1 and S2. ABDOMEN: Soft. EXTREMITIES: Trace edema. LABORATORY DATA: White count 15 and hemoglobin 9. BUN 93 and creatinine 5.6. Pro-natriuretic peptide 5000 down from 14,000. IMPRESSION: 1. Acute on chronic diastolic congestive heart failure, improved. 2. Lung cancer. 3. COPD exacerbation. 4. Community-acquired pneumonia. 5. End-stage renal disease. PLAN: 1. Antimicrobials. 2. Respiratory hygiene. 3. Maintenance diuresis. 4. Bronchodilators. 5. Steroid taper. 6. Hemodialysis with ultrafiltration for volume management. 7. Continue current antihypertensive regimen. Shamar Reyna M.D. DR: ADRIAN JOB#: [id number] CC:
--- NOTE | 2019-06-22 12:48 | Discharge Summary ---
Discharge Summary Discharge Summary _ DATE OF ADMISSION: 06/15/2019 DATE OF DISCHARGE: 06/21/2019 DISCHARGED BY: Dr. Squires REASON FOR ADMISSION: 74 years old male with past medical history of hypertension, coronary artery disease, CHF, COPD, end-stage renal disease, history of lung cancer ,status post chemotherapy and radiation, presented with worsening shortness of breath and overall respiratory distress. Patient reported cough and difficulty mobilizing secretions. Patient had similar symptoms in the past and had been admitted in the past to [facility]. Patient was diagnosed with stage II lung cancer about 12 years ago and undergone chemotherapy and radiation. He denied fever and chills. Patient reported orthopnea and increased oxygen requirements. Laboratory work-up was significant for leukocytosis WBC 14, hemoglobin 9, hematocrit 28.1. Potassium 3.4. BUN 25, creatinine 6.4, consistent with known history of end-stage renal disease. Troponin 0.074. pro BNP 37055. Lactic acid 1.8. EKG revealed sinus rhythm , no acute ischemic changes. Chest x-ray demonstrated diffuse interstitial disease with areas of dense parenchymal consolidation in the left midlung and right lung apex. Background interstitial disease appeared similar in extent to the prior exam , may have a chronic component. Small bilateral pleural effusion. Patient received empiric antibiotic and nebulizing treatment with bronchodilator and subsequently admitted for further management. CONSULTANTS: bolt labeler ID specialist Dr. Calderon GI specialist: Dr Reyes web content developer Dr. Diaz HOSPITAL COURSE: Patient initially admitted to telemetry floor. Supplemental oxygen provided and titrated to keep pulse oximetry above 92%. Pulmonary toilet with bronchodilator via HHN provided. Patient started on empiric antibiotics and IV steroids with gradual tapering.. Blood cultures were negative. Sputum culture revealed Sonali. Second troponin trended down , and the last two troponin within normal limits. Echocardiogram demonstrated preserved ejection fraction of 60% with no evidence of left ventricular hypertrophy. No evidence of pericardial effusion. No evidence of wall motion abnormality. Mild mitral regurgitation. Right ventricular systolic pressure of 56 consistent with a moderate pulmonary hypertension. Hemodialysis provided as per web content developer recommendations with ultrafiltration and close monitoring of volumes and renal parameters. Protein supplements implemented in plan of care as per registered nurse cardiac telemetry recommendation. Blood sugar was managed with sliding scale of insulin. DVT prophylaxis provided. CT of the chest revealed extensive honeycombing in the right upper lobe. Bilateral bronchiectasis, reticular interstitial opacity, architectural distortion and confluent opacity. Left upper lobe emphysema. 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 Antibiotic stopped. Supportive oxygen therapy provided. Patient had oxygen at home. Patient will need outpatient follow-up with another CT scan. was made aware. ProBNP trended down from initial 52962 down to 5060. Home medication continued, including antiplatelet therapy with Plavix, CHRIS inhibitor and Procardia for blood pressure control. Hemoglobin and hematocrit were closely monitored with goal to keep hemoglobin above 7. Stool for occult blood was positive. Hemoglobin and hematocrit remained at baseline , and prior to discharge hemoglobin 9.3, hematocrit 30.1. Patient was on Epogen 3 times a week. GI specialist started patient on PPI. Stool for occult blood was positive. Patient had a recent endoscopy at [place] for upper GI bleeding. He declined colonoscopy at this time due to poor health. Patient was advised to follow-up with outpatient PMD for possible colonoscopy at a later date. Patient clinically stabilized. Pulse oximetry was stable on oxygen 2 L via nasal cannula. Patient was discharged home with home health services to follow. Patient was recommended to schedule outpatient colonoscopy FINAL DIAGNOSES: COPD exacerbation Respiratory failure, home oxygen dependent Paroxysmal bronchospasm Lung cancer stage II Pneumonia, status post treatment Bronchiectasis Pleural effusion Pulmonary fibrosis Acute on chronic diastolic congestive heart failure End-stage renal disease, on hemodialysis Acute myocardial ischemia Anemia of chronic kidney disease Severe protein calorie malnutrition Paroxysmal atrial atrial ectopy Diabetes mellitus Coronary artery disease Hypertension DISCHARGE MEDICATIONS: See Medication Reconciliation list. DISCHARGE INSTRUCTIONS: Patient was discharged home with home health services. Follow up with primary care provider in one week. I have been assigned to dictate discharge summary for this account. I was not involved in the patient's management. Kim Schreiber NP Jun 22, 2019 12:48
== END 2019-06-21 11:05 | disposition home health service (06) | DRG 193 ==
LOC: EDUNIT# 23:41 → EDBD 23:41 → EMR 23:55 → 2E 06-15 01:11 → EDBEDREQ 06-15 01:48 → 3E 06-20 18:25
PROC: 5A1D70Z Performance of Urinary Filtration, Intermittent, Less than 6 Hours Per Day (ICD-10-PCS; principal; 2019-06-15)
DX: J18.9 Pneumonia, unspecified organism (principal); J96.21 Acute and chronic respiratory failure with hypoxia; N18.6 End stage renal disease; E43 Unspecified severe protein-calorie malnutrition; I50.33 Acute on chronic diastolic (congestive) heart failure; J44.1 Chronic obstructive pulmonary disease with (acute) exacerbation; C34.90 Malignant neoplasm of unspecified part of unspecified bronchus or lung; I13.2 Hypertensive heart and chronic kidney disease with heart failure and with stage 5 chronic kidney disease, or end stage renal disease; J44.0 Chronic obstructive pulmonary disease with (acute) lower respiratory infection; E11.22 Type 2 diabetes mellitus with diabetic chronic kidney disease; Z99.2 Dependence on renal dialysis; D63.1 Anemia in chronic kidney disease; J84.10 Pulmonary fibrosis, unspecified; I51.3 Intracardiac thrombosis, not elsewhere classified; I49.1 Atrial premature depolarization; I25.10 Atherosclerotic heart disease of native coronary artery without angina pectoris; Z79.82 Long term (current) use of aspirin; Z87.891 Personal history of nicotine dependence; J47.9 Bronchiectasis, uncomplicated
CPT/HCPCS: 36415; 71045; 71250; 80053; 82270; 82550; 82553; 82962; 83540; 83550; 83605; 83880; 84484; 85007; 85025; 85610; 85730; 87040; 87070; 87081; 87205; 87340; 93005; 93306; 94640; 96365; 96368; 96375; 99285; J1815; J7030

== ENCOUNTER 2019-10-23 05:40 | Day surgery (SDC) | payer MEDICARE, MEDICAID ==
[2019-10-16 09:30] LABS: BASOPHILS % (AUTO) 1.4 % (0.0-2.0); EOSINOPHILS % (AUTO) 5.8 % (0.0-3.0); HEMATOCRIT 29.3 % (42.0-52.0); HEMOGLOBIN 8.2 G/DL (14.2-18.0); LYMPHOCYTES % (AUTO) 20.4 % (20.0-45.0); MEAN CORPUSCULAR VOLUME 93 FL (80-99); MONOCYTES % (AUTO) 10.9 % (1.0-10.0); NEUTROPHILS % (AUTO) 61.5 % (45.0-75.0); PLATELET COUNT 325 K/UL (150-450); RED BLOOD COUNT 3.15 M/UL (4.70-6.10); RED CELL DISTRIBUTION WIDTH 21.8 % (11.6-14.8); WHITE BLOOD COUNT 13.3 K/UL (4.8-10.8)
[2019-10-16 09:37] LABS: ANION GAP 7 mmol/L (5-15); BLOOD UREA NITROGEN 49 mg/dL (7-18); CALCIUM 8.6 MG/DL (8.5-10.1); CARBON DIOXIDE 35 MMOL/L (21-32); CHLORIDE 95 MMOL/L (98-107); CREATININE 4.9 MG/DL (0.55-1.30); POTASSIUM 3.3 MMOL/L (3.5-5.1); SODIUM 137 MMOL/L (136-145)
--- NOTE | 2019-10-17 16:03 | Opthalmology H&P ---
Ophthalmology H&P H&P Chief Complaint: decreased vision in right eye HPI Vision Affects Ability to: read, manage personal affairs HPI Narrative Blurry vision Exam Visual Acuity: OD 20/80 OS 20/30 Tension: OD 13 OS 13 Eye Exam: normal OU: external exam, palpebral fissure-width, marginal reflex distance, levator function, corneas, anterior chambers, fundus exam; findings: lens - NS cataract OD, IOL OS Assessment/Plan Treatment Plan: cataract extraction w/ lens implant Goals of Treatment: improvement of vision, enhance quality of life Attestation Attestation The risks and benefits of the surgery as well as alternative procedures were explained to the patient in detail. Jurgen Mena MD Oct 17, 2019 16:03
--- NOTE | 2019-10-17 16:06 | Pre-Procedure Note/Attestation ---
Pre-Procedure Note/Attestation Complete Prior to Procedure Planned Procedure: right Procedure Narrative: Cataract extraction with IOL implant right eye Indications for Procedure Pre-Operative Diagnosis: Nuclear sclerotic cataract right eye Attestation I attest that I discussed the nature of the procedure; its benefits; risks and complications; and alternatives (and the risks and benefits of such alternatives ), prior to the procedure, with the patient (or the patient's legal screening representative). I attest that, if there was a reasonable possibility of needing a blood transfusion, the patient (or the patient's legal screening representative) was given the [facility] standardized written summary, pursuant to the [place] Blood Safety Act ([place] Health and Safety Code # 1645, as amended). I attest that I re-evaluated the patient just prior to the surgery and that there has been no change in the patient's H&P, except as documented below: Jurgen Mena MD Oct 17, 2019 16:06
[2019-10-23] VITALS (10 sets, daily range): BP systolic 116–152; BP diastolic 51–85
[~2019-10-23] VITALS: Ht 170.2 cm; Wt 59.9 kg
[2019-10-23] MEDS: Phenylephrine 10% Opth Soln 5ml RIGHT EYE SCH ×3 (06:35→07:09)
[2019-10-23] MEDS: Tropicamide 1% Opth 15ml Soln RIGHT EYE SCH ×3 (06:36→07:09)
[2019-10-23] MEDS: Cyclopentolate 1% Opth Sol 2ml RIGHT EYE SCH ×3 (06:36→07:09)
[2019-10-23] MEDS ORDERED: Sterile Water Irrig 1000ml IRRIG ONE (07:00)
[2019-10-23] MEDS ORDERED: Proparacaine 0.5% Opth Soln 15ml RIGHT EYE ONE (07:00)
[2019-10-23] MEDS ORDERED: Akten 3.5% 1ml Btl RIGHT EYE ONE (07:00)
[2019-10-23] MEDS ORDERED: NS Irrig 1000ml ONE (07:00)
[2019-10-23] MEDS ORDERED: Tetracaine 0.5% Opth 4ml Soln RIGHT EYE ONE (07:00)
[2019-10-23] MEDS ORDERED: LR 1000ml ONE (07:00)
[2019-10-23] MEDS ORDERED: fentaNYL 100 mcg/2 mL IV ONE (07:06)
[2019-10-23] MEDS ORDERED: BSS 500ml btl ONE (07:07)
[2019-10-23] MEDS ORDERED: BSS 15ml BTL ONE (07:07)
[2019-10-23] MEDS ORDERED: Sodium Hyaluronate 10 mg/ml 0.85ml ONE (07:08)
--- NOTE | 2019-10-23 07:19 | Anethesia Preoperative Eval ---
Anesthesia Pre-op PMH/ROS General Date of Evaluation: Oct 23, 2019 Time of Evaluation: 07:15 Anesthesiologist: Haresh ASA Score: ASA 3 Mallampati Score Class I : Soft palate, uvula, fauces, pillars visible Class II: Soft palate, uvula, fauces visible Class III: Soft palate, base of uvula visible Class IV: Only hard plate visible Mallampati Classification: Class III Surgeon: Trina Diagnosis: R eye cataract Surgical Procedure: Cataract extraction Anesthesia History: none Social History: smoking - h/o Family History: no anesthesia problems Allergies: Coded Allergies: ASPIRIN (Verified Allergy, Unknown, 06/14/19) Uncoded Allergies: paper tape (Allergy, Severe, 11/18/18) SKIN RASH Medications: see eMAR Patient NPO?: Yes Past Medical History Cardiovascular: Reports: HTN, arrhythmia - A fib, other - h/o chf; Denies: CAD, PR, valve dz Pulmonary: Reports: COPD; Denies: asthma, BARRETT, other Gastrointestinal/Genitourinary: Reports: GERD, ESRD - on HD; Denies: CRI, other Neurologic/Psychiatric: Reports: depression/anxiety; Denies: dementia, CVA, TIA, other Endocrine: Reports: hypothyroidism; Denies: DM, steroids, other HEENT: Reports: cataract (L), cataract (R); Denies: glaucoma, [place] (L), [place] (R), other Hematology/Immune: Reports: anemia - of chronic d-s; Denies: DVT, bleeding disorder, other Musculoskeletal/Integumentary: Reports: OA; Denies: RA, DJD, DDD, edema, other Other: other - malnourished PMH Narrative: as above PSxH Narrative: A-V shunt, L eye cataract Anesthesia Pre-op Phys. Exam Physician Exam Last Vital Signs Date Time Temp Pulse Resp B/P (MAP) Pulse Ox O2 Delivery O2 Flow Rate FiO2 10/23/19 07:04 Nasal Cannula 3 10/23/19 06:54 97.8 72 18 138/52 100 Constitutional: NAD Neurologic: CN 2-12 intact Cardiovascular: RRR, no M/R/G Respiratory: other - some wheezing Gastrointestinal: S/NT/ND Airway Exam Mallampati Score: Class III MO: limited Neck: stiff ROM: limited Teeth: missing Dentures: no upper, no lower Anesthesia Pre-op A/P Labs Chemistry Test 10/23/19 06:45 Potassium Level Pending Risk Assessment & Plan Assessment: ASA 3 Plan: Sukhjinder Galdamez MD Oct 23, 2019 07:19
[2019-10-23] MEDS ORDERED: LR 1000ml 1,000 ML IVLG SCH (07:20)
[2019-10-23] MEDS ORDERED: fentaNYL 100 mcg/2 mL IV PRN (07:30)
--- NOTE | 2019-10-23 08:54 | Immediate Post-Op Evaluation ---
Immediate Post-Op Evalulation Immediate Post-Op Evalulation Procedure: R eye cataract extraction with IOL Date of Evaluation: Oct 23, 2019 Time of Evaluation: 08:53 IV Fluids: 150 Blood Products: none Estimated Blood Loss: none Urinary Output: none Blood Pressure Systolic: 146 Blood Pressure Diastolic: 72 Pulse Rate: 74 Respiratory Rate: 22 O2 Sat by Pulse Oximetry: 99 Temperature (Fahrenheit): 98.5 Pain Score (1-10): 1 Nausea: No Vomiting: No Complications none Patient Status: awake, patent, none Hydration Status: adequate Sukhjinder Hutson MD Oct 23, 2019 08:54
[2019-10-23] MEDS ORDERED: Ciprofloxacin Opth Soln 5ml RIGHT EYE ONE (09:00)
--- NOTE | 2019-10-23 10:13 | 48 Hour Post Anesthesia Eval ---
Post Anesthesia Evaluation Procedure: R eye cataract extraction with IOL Date of Evaluation: Oct 23, 2019 Time of Evaluation: 10:12 Blood Pressure Systolic: 122 0: 85 Pulse Rate: 78 Respiratory Rate: 22 Temperature (Fahrenheit): 97.6 O2 Sat by Pulse Oximetry: 98 Airway: patent Nausea: No Vomiting: No Pain Intensity: 1 Hydration Status: adequate Cardiopulmonary Status: stable Mental Status/LOC: patient returned to baseline Follow-up Care/Observations: n/a Post-Anesthesia Complications: none Follow-up care needed: ready to discharge Sukhjinder Hutson MD Oct 23, 2019 10:13
--- NOTE | 2019-10-23 14:19 | Brief Operative Note ---
Immediate Post Operative Note Operative Note Chief Complaint: Blurry vision Pre-op Diagnosis: Nuclear sclerotic cataract right eye Procedure: Cataract extraction with IOL implant right eye Post-op Diagnosis: Pseudophakia OD Findings: consistent w/pre-op dx studies Surgeon: Jurgen Mena MD Anesthesiologist: Sukhjinder Hutson MD Anesthesia: MAC Specimen: none Complications: none Condition: stable Fluids: LR Estimated Blood Loss: none Drains: none Implant(s) used?: Yes - IOL-OD Jurgen Mena MD Oct 23, 2019 14:19
--- NOTE | 2019-10-23 14:22 | Operative Note - PDOC ---
Operative Note Operative Note Date of Operation/Procedure: Oct 23, 2019 Chief Complaint: Blurry vision Pre-op Diagnosis: Nuclear sclerotic cataract right eye Procedure: Cataract extraction with IOL implant right eye Post-op Diagnosis: Pseudophakia OD Operative Findings: consistent w/pre-op dx studies Surgeon: Jurgen Mena MD Anesthesiologist: Sukhjinder Hutson MD Anesthesia: MAC Specimen: none Complications: none Condition: stable Fluids: LR Estimated Blood Loss: none Drains: none Implant(s) used?: Yes - IOL-OD Indications for Procedure Nuclear sclerotic cataract right eye Description of Procedure This patient has been complaining visually significant cataract in the right eye with the best corrected visual acuity of 20/80 under moderate glare conditions worse. The patient complains of difficulties with glare in performing activities of daily living and wants to manage personal affairs with comfort and accuracy and see well enough to move with safety at home and outdoors. The risks, benefits and alternatives of the procedure were discussed with the patient in the office prior to scheduling surgery. All questions from the patient were answered after the surgical procedure was explained in detail. The risks of the procedure as explained to the patient include, but are not limited to, pain, infection, bleeding, loss of vision, retinal detachment, need for further surgery, loss of lens nucleus, double vision, etc. Alternative procedures were discussed which include, to do nothing or seek a second opinion. Informed consent for this procedure was obtained from the patient. The patient was referred to a primary care physician for a cardiopulmonary clearance prior to surgery, after proper evaluation was done patient was properly scheduled for outpatient surgery. The patient was brought to the operating room where the anesthesiologist established I.V. lines and cardiac monitoring leads. Mild intravenous sedation was administered. The patient was then prepared with a 5% solution of povidone -iodine to the conjunctival fornix and lashes, and a 5% solution of povidone- iodine to the lids and periorbital skin. The patient was then draped in the usual sterile fashion. A lid speculum was then placed in the operative eye. A keratome blade was then used to create a biplanar incision into the anterior chamber. Viscoelastics was then instilled into the anterior chamber. A capsulorrhexis was then fashioned with an utrata forceps A G 27 cannula was used to hydrodissect and hydro delineate the lens nucleus. Paracentesis incision was made at 3 o'clock with sharp blade. The phacoemulsification unit, after being properly adjusted and tested, was then used to emulsify the nucleus. Residual cortical material was aspirated with the irrigation and aspiration unit. Healon was then instilled into the anterior chamber. The corneal wound was then enlarged to the size of the optic with the talat keratome blade. The intraocular lens was then inspected for right power and size and thought to be satisfactory. Then the lens was gently placed in the capsular bag. Positioning within the capsular bag was confirmed by direct visualization. Optic centration was accomplished with a Sinskey hook. Viscoelastics was removed from the anterior chamber using the irrigation and aspiration unit. The corneal wound was then tested for leaks and none were found. The lid speculum were then removed. Sponge and needle counts were correct. An eye patch and shield were placed over the operative eye. The patient was taken to the recovery room in stable condition. There were no complications. The patient tolerated the procedure well. The patient was then transferred to the ambulatory surgery unit in stable and satisfactory condition , was given detailed written instructions and asked to follow up in the office the next day. Jurgen Mena MD Oct 23, 2019 14:21
[2019-11-04] MEDS ORDERED: IPRATROPIU0.2 MG/1 M HHN (17:55)
[2019-11-04] MEDS ORDERED: BREO ELLIPTA 11 EACH IH (17:55)
== END 2019-10-23 10:15 | disposition home or self-care (01) ==
LOC: SUR 05:40 → EDBD 10:00 → SUR 10:15
DX: H25.11 Age-related nuclear cataract, right eye (principal); Z87.891 Personal history of nicotine dependence; J44.9 Chronic obstructive pulmonary disease, unspecified; I13.2 Hypertensive heart and chronic kidney disease with heart failure and with stage 5 chronic kidney disease, or end stage renal disease; N18.6 End stage renal disease; I50.9 Heart failure, unspecified; Z99.2 Dependence on renal dialysis; E03.9 Hypothyroidism, unspecified; K21.9 Gastro-esophageal reflux disease without esophagitis; Z88.6 Allergy status to analgesic agent; E46 Unspecified protein-calorie malnutrition; Z68.20 Body mass index [BMI] 20.0-20.9, adult
CPT/HCPCS: 36415; 66850; 80048; 84132; 85025; 85610; 85730; 93005; 94003; J2704; J3010; J3370; J7120; V2632; 94150